=== PATIENT | female | born 1990 | race Caucasian/White ===

== ENCOUNTER 2016-08-12 11:57 | Emergency (ER) | payer BC ==
[2016-08-12] MEDS ORDERED: Ondansetron INJ* 2 MG/ML VIAL IV ONE ×2 (12:43→15:51)
[2016-08-12] MEDS ORDERED: NS 0.9% 1000 ML* 1,000 ML IV ONE (12:43)
[2016-08-12] MEDS ORDERED: HYDROcodone/ACETAMIN 5-325 MG* 1 TAB PO ONE ×2 (13:06→15:11)
--- NOTE | 2016-08-12 13:15 | ED ---
Abdominal Pain/Female - HPI Summary HPI Summary: 26 female presents with complaints of lower left abdominal/pelvic pain that began last night around 8pm and has progressively getting worse. Patient states the pain feels sharp and is worth with movement. Feels better to have her knees bent and in position. Denies radiation or urinary symptoms. Patient normally has urinary frequency. Denies blood in urine. Admits to vaginal bleeding that comes and goes for the past 6 days. Patient tried taking Ibuprofen 400mg this morning without any relief. She also complains of a migraine and feeling hot. Patient says the pain feels similar to when she had an ovarian cyst of the left ovary approximately 2 years ago. Patient also experienced bleeding with the past ovarian cyst. She has been worked up by her OBGYN for endometriosis and uterine issues. Admits to nausea however has not vomited. LBM this morning, normal without blood. Denies constipation and diarrhea. Denies any difficulty breathing and chest pain. PMHx of migraines. She is sexually active with her and take OCP. Does not think she is took OTC test to be sure yesterday that was negative. Denies vaginal discharge other than blood. Has been drinking fluids. - History of Current Complaint Chief Complaint: EDAbdPain Stated Complaint: LOWER LEFT ABD PAIN Time Seen by Provider: 08/12/16 12:07 Hx Obtained From: Patient Hx Last Menstrual Period: 07/26/16 Onset/Duration: Sudden Onset, Lasting Hours Timing: Constant Severity Initially: Moderate Severity Currently: Moderate Pain Intensity: 8 Pain Scale Used: 0-10 Numeric Location: Discrete At: LLQ, Suprapubic Radiates: No Character: Sharp, Cramping Aggravating Factor(s): Movement Alleviating Factor(s): Position - some relief Associated Signs and Symptoms: Positive: Vaginal Bleeding, Nausea - Risk Factors Ovarian Torsion Risk Factor: Ovarian Cysts/Tumors Allergies/Adverse Reactions: Allergies Allergy/AdvReac Type Severity Reaction Status Date / Time Azithromycin [From Zithromax] Allergy Rash Verified 03/31/16 15:10 Cefuroxime Allergy Anaphylatic Verified 05/07/16 15:34 Shock Guaifenesin [From Entex ER] Allergy Unknown Verified 05/07/16 15:35 Reaction Details Methylparaben [From Entex ER] Allergy Unknown Verified 05/07/16 15:35 Reaction Details Montelukast Allergy Hallucinati Verified 03/31/16 15:10 ons Penicillins [PCN] Allergy Hives Verified 03/31/16 15:10 Phenylephrine [From Entex ER] Allergy Unknown Verified 05/07/16 15:35 Reaction Details Propylparaben [From Entex ER] Allergy Unknown Verified 05/07/16 15:35 Reaction Details Shellfish Allergy Allergy Itchy and Verified 03/31/16 15:10 Erythemic Ears Sulfa Drugs Allergy Hives/Diff. Verified 03/31/16 15:10 Breathing/I tching Sumatriptan [From Imitrex] Allergy Hives Verified 03/31/16 15:10 Codeine AdvReac See Comment Verified 03/31/16 15:10 Ketorolac Tromethamine AdvReac Vomiting Verified 03/31/16 15:10 [From Toradol] grape flavoring Allergy Facial Uncoded 03/31/16 15:10 Swelling, Difficulty Breathing, and Wheezing PMH/Surg Hx/FS Hx/Imm Hx Endocrine/Hematology History: Denies: Hx Anticoagulant Therapy, Hx Diabetes, Hx Thyroid Disease Cardiovascular History: Reports: Other Cardiovascular Problems/Disorders - LUPUS Denies: Hx Congestive Heart Failure, Hx Deep Vein Thrombosis, Hx Hypertension , Hx Myocardial Infarction, Hx Pacemaker/ICD Respiratory History: Denies: Hx Asthma, Hx Chronic Obstructive Pulmonary Disease (COPD), Hx Lung Cancer, Hx Pneumonia, Hx Pulmonary Embolism GI History: Denies: Hx Gall Bladder Disease, Hx Gastrointestinal Bleed, Hx Ulcer, Hx Urosepsis History: Denies: Hx Kidney Stones, Hx Renal Disease Neurological History: Reports: Hx Headaches, Hx Migraine - She uses Imetrix- like pill for migraines. Denies: Hx Dementia, Hx Seizures, Hx Transient Ischemic Attacks (TIA) Psychiatric History: Reports: Hx Anxiety Denies: Hx Depression, Hx Schizophrenia, Hx Bipolar Disorder, Hx Substance Abuse - Surgical History Surgery Procedure, Year, and Place: WISDOM TEETH EXTRACTION. EAR TUBES Infectious Disease History: No Infectious Disease History: Denies: Hx Clostridium Difficile, Hx Hepatitis, Hx Human Immunodeficiency Virus (HIV), Hx Shingles, Hx Tuberculosis, Traveled Outside the [place] in Last 30 Days - Family History Known Family History: Positive: Cardiac Disease, Hypertension - Social History Alcohol Use: Occasionally Substance Use Type: Reports: None Smoking Status (MU): Never Smoked Tobacco Review of Systems Positive: Fever Eyes: Negative ENT: Negative Cardiovascular: Negative Respiratory: Negative Positive: Abdominal Pain, Nausea Positive: discharge - vaginal bleeding Musculoskeletal: Negative Skin: Negative Positive: Headache Psychological: Normal All Other Systems Reviewed And Are Negative: Yes Physical Exam Triage Information Reviewed: Yes Vital Signs On Initial Exam: Initial Vitals Temp Pulse Resp BP Pulse Ox 99.1 F 131 20 128/71 100 08/12/16 11:58 08/12/16 11:58 08/12/16 11:58 08/12/16 11:58 08/12/16 11:58 temporal and rectal temp re-taken and found to be 101F. tachycardia noted, fluids given. BP nomal, not hypotensive. Vital Signs Reviewed: Yes Appearance: Positive: Well-Appearing, Well-Nourished, Pain Distress - mild Skin: Positive: Warm - hot to touch, Skin Color Reflects Adequate Perfusion, Dry Head/Face: Positive: Normal Head/Face Inspection Eyes: Positive: Normal, EOMI, JOHANNA, Conjunctiva Clear, Other: - photophobia ENT: Positive: Normal ENT inspection, Hearing grossly normal, Pharynx normal, TMs normal Neck: Positive: Supple, Nontender, No Lymphadenopathy Respiratory/Lung Sounds: Positive: Clear to Auscultation, Breath Sounds Present Cardiovascular: Positive: Normal, RRR, Pulses are Symmetrical in both Upper and Lower Extremities. Negative: Leg Edema Left, Leg Edema Right Abdomen Description: Positive: No Organomegaly, Soft, Other: - tender on palpation of LLQ and supra pubic. minimal tenderness on RLQ (-) Rovsing's, Psoas and Obturators. Negative: CVA Tenderness (R), CVA Tenderness (L), Distended, Guarding, McBurney's Point Tenderness, Peritoneal Signs, Splenomegaly Bowel Sounds: Positive: Present Pelvic Exam: Positive: external exam normal, speculum exam normal - per patient' s norm- Due to previous complication of and giving to large baby patient has scar tissue and cervix is placed on the left lateral wall. appear normal otherwise., bimanual exam normal - tender, no cerv. motion tender , no masses, discharge - appears to be normal discharge, culture taken, tender adnexa. Negative: active bleeding, blood, cervicitis, lesions, mass, tender w/ cervical motion, tender uterus Musculoskeletal: Positive: Normal, Strength/ROM Intact Neurological: Positive: Normal, Sensory/Motor Intact, Alert, Oriented to Person Place, Time, CN Intact II-III, Reflexes Intact, NV Bundle Intact Distally, Normal Gait, Finger to Nose, Speech Normal, Other - normal neuro exam Psychiatric: Positive: Normal, Affect/Mood Appropriate AVPU Assessment: Alert - Isidro Coma Scale Coma Scale Total: 15 Diagnostics - Vital Signs Vital Signs Temp Pulse Resp BP Pulse Ox 08/12/16 12:30 131 125/82 100 08/12/16 12:29 130 99 08/12/16 12:23 101.3 F 130 08/12/16 11:58 99.1 F 131 20 128/71 100 - Laboratory Result Diagrams: 08/12/16 13:15 08/12/16 13:15 Lab Statement: Any lab studies that have been ordered have been reviewed, and results considered in the medical decision making process. - Ultrasound No standard instances Ultrasound Interpretation: Positive (See Comments) - Hypoechoic 5 mm lesion in the right ovary likely represents a hemorrhagic cyst. Follow-up exam is suggested. No evidence of torsion is noted. Ultrasound Interpretation Completed By: Radiologist Re-Evaluation - Re-Evaluation First Eval Re-Evaluation Time: 13:00 Change: Improved - patient is feeling better after pain medication and zofran Second Eval Re-Evaluation Time: 15:20 Change: Worse - migraine and abdominal pain has seemed to increase along with nausea. will give another dose of pain medication and zofran Third Eval Re-Evaluation Time: 16:05 Change: Improved - nausea and abdominal pain improved. still experiencing migraine, just took imitrex approximately 30 minutes ago. tachycardia and fever subsided Abdominal Pain Fem Course/Dx - Course Course Of Treatment: Full work up, labs, UA, HCG preg, cultures and lactic ordered. Pelvic exam and U/S transvaginal obtained. Due to patient allergies, hydrocodone given for pain. Zofran and fluids. Imitrex for migraine, which she is presribed at home for migraines. Pelvic US positive for hemorrhagic cyst on left ovary. Pelvic exam normal. Tachycardia and fever subsided, vitals stable. Patient will be d/c with pain and nausea management. aware of worsening signs and symptoms. - Diagnoses Differential Diagnosis: Positive: Constipation, Ovarian Cyst, , Urinary Tract Infection Provider Diagnoses: Hemorrhagic ovarian cyst Discharge - Discharge Plan Condition: Stable Disposition: HOME Prescriptions: Naproxen TAB* [Naprosyn TAB*] 500 mg PO Q8H PRN #20 tab PRN Reason: Pain Ondansetron ODT TAB* [Zofran 4 MG Odt TAB*] 4 mg PO Q6H PRN #10 tab.odt PRN Reason: Nausea Patient Education Materials: Ovarian Cyst (ED) Referrals: Paxton Mansfield MD [Primary Care Provider] - Additional Instructions: Take pain medication as needed to help with your pain, take with food. Take the Zofran to help with nausea as needed. Heating pads may also help with discomfort. Drink lots of water and get plenty of rest. Follow up and make an appointment with your primary care provider or OBGYN after your next cycle to ensure proper treatment. If pain becomes un-bearable like we talked about and increases along with new symptoms of feeling faint, high fevers over 104F and vomiting please seek medical attention promptly.
[2016-08-12 13:29] LABS: Hematocrit 44 % (35-47); Hemoglobin 15.1 g/dl (12.0-16.0); Mean Corpuscular HGB Conc 35 g/dl (31-36); Mean Corpuscular Hemoglobin 30 pg (27-31); Mean Corpuscular Volume 85 fL (80-97); Mean Platelet Volume 9 um3 (7.4-10.4); Red Cell Distribution Width 13 % (10.5-15); White Blood Count 4.4 10^3/ul (3.5-10.8)
[2016-08-12 13:32] LABS: Urine Bilirubin Negative (Negative); Urine Glucose Negative (Negative); Urine Nitrite Negative (Negative)
[2016-08-12 13:47] LABS: ALT 15 U/L (7-52); AST 21 U/L (13-39); Albumin 4.5 g/dL (3.2-5.2); Alkaline Phosphatase 59 U/L (34-104); Anion Gap 8 mmol/L (2-11); BUN/Creatinine Ratio 11.6 (8-20); Blood Urea Nitrogen 8 mg/dL (6-24); CO2 Carbon Dioxide 26 mmol/L (22-32); Calcium 9.7 mg/dL (8.6-10.3); Chloride 98 mmol/L (101-111); EGFR African American 130.3 (>60); EGFR Non-African American 101.3 (>60); Globulin 3.5 g/dL (2-4); Glucose 104 mg/dL (70-100); Lipase 15 U/L (11.0-82.0); Sodium 132 mmol/L (133-145)
--- NOTE | 2016-08-12 13:59 | RAD ---
Indication: Pelvic pain bleeding. Real-time sonography of the pelvis was performed. The study was performed utilizing endovaginal technique. The uterus measures 8.9 x 5.4 x 6.4 cm. Endometrial echo measures 6.6 mm. The right ovary measures 22 x 13 x 24 mm. Left ovary measures 28 x 10 x 20 mm. Doppler interrogation demonstrates normal flow in both ovaries. Hyperechoic area in the right ovary measures 5 x 3 x 5 mm may represent hemorrhagic follicle. This was not not identified previously. Follow-up exam is suggested. IMPRESSION: Hypoechoic 5 mm lesion in the right ovary likely represents a hemorrhagic cyst. Follow-up exam is suggested. No evidence of torsion is noted.
[2016-08-12] MEDS ORDERED: SUMAtriptan TAB* 50 MG PO ONE (14:28)
[2016-08-12] MEDS ORDERED: Ondansetron INJ* 2 MG/ML VIAL ONE (15:50)
[2016-08-12 17:32] VITALS: BP 115/71
== END 2016-08-12 17:33 | disposition home or self-care (01) ==
LOC: ED 11:57
DX: N83.209 Unspecified ovarian cyst, unspecified side (principal); N93.9 Abnormal uterine and vaginal bleeding, unspecified; R10.32 Left lower quadrant pain; R11.0 Nausea; R50.9 Fever, unspecified; R51 Headache
CPT/HCPCS: 36415; 76830; 80053; 81003; 83605; 83690; 84702; 85025; 86140; 87040; 87480; 87510; 87660; 99283; A9270-GY; J2405

== ENCOUNTER 2016-08-15 07:09 | Emergency (ER) | payer BC ==
[2016-08-15 07:23] VITALS: BP 108/58
--- NOTE | 2016-08-15 07:59 | UC ---
Complaint Female HPI - HPI Summary HPI Summary: The patient comes in today for: 1. Genital area soreness/"cut": Onset: Yesterday. Palliative/provocative: Salt water (Epsom salt Sitz bath), and touching makes it worse. Quality: Soreness, burning, pulsing Region: Severity: 8/10 Time: Constant. Associated symptoms: Fever: None Vaginal discharge/bleeding: None Previous disease: None. Previous treatment: Zinc ointment made it worse. She denies any problems with photophobia. But, she states that she has some oral lesions from time to time. She is presently seeing a structures technician for her Lupus. * - History Of Current Complaint Chief Complaint: UCGU Stated Complaint: PERSONAL Time Seen by Provider: 08/15/16 07:53 Hx Obtained From: Patient Hx Last Menstrual Period: 07/26/16 ?: No - Allergies/Home Medications Allergies/Adverse Reactions: Allergies Allergy/AdvReac Type Severity Reaction Status Date / Time Azithromycin [From Zithromax] Allergy Rash Verified 08/15/16 07:16 Cefuroxime Allergy Anaphylatic Verified 08/15/16 07:16 Shock Guaifenesin [From Entex ER] Allergy Unknown Verified 08/15/16 07:16 Reaction Details Methylparaben [From Entex ER] Allergy Unknown Verified 08/15/16 07:16 Reaction Details Montelukast Allergy Hallucinati Verified 08/15/16 07:16 ons Penicillins [PCN] Allergy Hives Verified 08/15/16 07:16 Phenylephrine [From Entex ER] Allergy Unknown Verified 08/15/16 07:16 Reaction Details Propylparaben [From Entex ER] Allergy Unknown Verified 08/15/16 07:16 Reaction Details Shellfish Allergy Allergy Itchy and Verified 08/15/16 07:16 Erythemic Ears Sulfa Drugs Allergy Hives/Diff. Verified 08/15/16 07:16 Breathing/I tching Sumatriptan [From Imitrex] Allergy Hives Verified 08/15/16 07:16 Codeine AdvReac See Comment Verified 08/15/16 07:16 Ketorolac Tromethamine AdvReac Vomiting Verified 08/15/16 07:16 [From Toradol] grape flavoring Allergy Facial Uncoded 08/15/16 07:16 Swelling, Difficulty Breathing, and Wheezing Home Medications: Home Medications Hydrochlorothiazide TAB* [Hydrodiuril TAB*] 12.5 mg PO DAILY 08/15/16 [History Confirmed 08/15/16] SUMAtriptan TAB* [Imitrex TAB*] 50 mg PO SEE INSTRUCTIONS 08/15/16 [History Confirmed 08/15/16] PMH/Surg Hx/FS Hx/Imm Hx Previously Healthy: No - Lupus (Hives, fevers), peripheal edema Endocrine History Of: Denies: Diabetes, Thyroid Disease, Hyperthyroidism, Hypothyroidism, Dyslipidemia Cardiovascular History Of: Denies: Cardiac Disorders, Hypertension, Pacemaker/ICD, Myocardial Infarction , Congestive Heart Failure, Atrial Fibrillation, Deep Vein Thrombosis, Bleeding Disorders Respiratory History Of: Denies: COPD, Asthma, Bronchitis, Pneumonia, Pulmonary Embolism GI/ History Of: Denies: Gastroesophageal Reflux, Ulcer, Gastrointestinal Bleed, Gall Bladder Disease, Kidney Stones, Diverticulitis, Renal Disease, Urosepsis Neurological History Of: Reports: Migraine - She uses Imetrix-like pill for migraines. Denies: TIA, CVA, Dementia, Seizures Psychological History Of: Reports: Anxiety Denies: Depression, Bipolar Disorder, Schizophrenia, Post Traumatic Stress Disorder Cancer History Of: Denies: Lung Cancer, Colorectal Cancer, Breast Cancer, Prostate Cancer, Cervical Cancer Other History Of: Negative For: HIV, Hepatitis B, Hepatitis C, Anticoagulant Therapy - Surgical History Surgical History: Yes Surgery Procedure, Year, and Place: WISDOM TEETH EXTRACTION. EAR TUBES - Family History Known Family History: Positive: Cardiac Disease, Hypertension - Social History Occupation: Employed Full-time Alcohol Use: Occasionally Substance Use Type: None Smoking Status (MU): Never Smoked Tobacco - Immunization History Most Recent Influenza Vaccination: 03/10/16 Most Recent Tetanus Shot: 2 yrs ago Review of Systems Constitutional: Negative Skin: Rash Eyes: Negative ENT: Negative Respiratory: Negative Cardiovascular: Negative Gastrointestinal: Negative Genitourinary: Negative All Other Systems Reviewed And Are Negative: Yes Physical Exam Triage Information Reviewed: Yes Appearance: Well-Appearing, No Pain Distress, Well-Nourished Vital Signs: Initial Vital Signs Temp 98.4 F 08/15/16 07:18 Pulse 86 08/15/16 07:18 Resp 18 08/15/16 07:18 BP 108/58 08/15/16 07:18 Pulse Ox 100 08/15/16 07:18 Vital Signs Reviewed: Yes Eyes: Positive: Conjunctiva Clear, Other: - No photophobia. No erythema of the conjunctiva.. Negative: Discharge ENT: Positive: Hearing grossly normal, Other: - Geographic tonque is present-- but no aphthous ulcers.. Negative: Pharyngeal erythema, Nasal congestion, Nasal drainage, TM bulging, TM dull, TM red Dental: Negative: Gross Decay/Caries @, Dental Fracture @ Neck: Positive: Supple, Nontender, No Lymphadenopathy. Negative: Nuchal Rigidity Respiratory: Positive: Chest non-tender, Lungs clear, No respiratory distress, No accessory muscle use. Negative: Rhonchi, Wheezing Cardiovascular: Positive: RRR, No Murmur Abdomen Description: Positive: No Organomegaly, Soft. Negative: Nontender - She has some tenderness in the lower left quadrant, but she was seen in ER for this: ovarian cyst-improving., Distended, Guarding Musculoskeletal: Positive: Strength Intact, ROM Intact, No Edema Neurological: Positive: Alert, Muscle Tone Normal Psychological: Positive: Age Appropriate Behavior, Consolable Skin: Positive: breakdown - She has a painful ulcer of the left labia. There is no erythema, no discharge, no inquinal lymph nodes, It is about 3 mm x 5 mm. Diagnostics - Laboratory Diagnostic Studies Completed/Ordered: Syphilis IGG with reflex RPR ordered as well as viral culture. Complaint Female Dx - Course Course Of Treatment: Patient was told that I did not know what was causing the single genital ulcer. She was told that it may be bacterial (Chancroid--though I did not mention this word), and viral (HSV though I did not mention this word either). She was told that it may be Bechet's and to see her structures technician who is treating her Lupus. I doubt that it is lymphogranuloma venereum, or granuloma inquinale due to these conditions being rare in [place] and painless. She was told to cover the ulcer with petroleum jelly and take Cipro (will cover Chancroid) and to follow up with her PCP and structures technician. - Differential Dx/Diagnosis Provider Diagnoses: Painful left genital ulcer. Discharge - Discharge Plan Condition: Stable Disposition: HOME Referrals: Paxton Mansfield MD [Primary Care Provider] - 1 Week (Please see your primary care provider in about a week to see how well you are doing. If you get worse, please be seen sooner.) Additional Instructions: Please contact your structures technician for a follow up evaluation and consideration for Bechet's. If you develop any eye symptoms such as light sensitivity, please be seen by an ophthalmolgist as soon as you can for possible uveitis.
[2016-08-15 13:18] LABS: Syphilis Index < 0.1 Index
[2016-08-18 01:04] LABS: HS/VZ Source LEFT LABIAL; Varicella Zoster Result Negative (Negative); Varicella Zoster Source LEFT LABIAL
== END 2016-08-15 08:55 | disposition home or self-care (01) ==
LOC: UCCORT 07:09
DX: N76.6 Ulceration of vulva (principal); Z11.3 Encounter for screening for infections with a predominantly sexual mode of transmission; Z88.1 Allergy status to other antibiotic agents; Z88.5 Allergy status to narcotic agent; Z88.0 Allergy status to penicillin; Z88.2 Allergy status to sulfonamides; Z88.8 Allergy status to other drugs, medicaments and biological substances
CPT/HCPCS: 36415; 86592; 87529; 87798; 99212; G0463

== ENCOUNTER 2016-08-15 20:58 | Emergency (ER) | payer BC ==
[2016-08-15 21:30] VITALS: BP 112/71
--- NOTE | 2016-08-15 21:42 | UC ---
UC General HPI - HPI Summary HPI Summary: complaint of ulceration on her labia that she noticed yesterday seen at urgent care this morning and put on cipro for infection since the morning it feels painful and she cannot find a position of comfort feels like a open sore pain radiates into her left inguinal lymph node currently has ovarian cyst took 1/2 pill of hydrocodone with some relief this morning but afraid to take medication denies dysuria, vaginal discharge,fever and chills - History of Current Complaint Chief Complaint: UCAbdominalPain Stated Complaint: PERSONAL (RE-CK) Time Seen by Provider: 08/15/16 21:29 Hx Obtained From: Patient - Allergy/Home Medications Allergies/Adverse Reactions: Allergies Allergy/AdvReac Type Severity Reaction Status Date / Time Azithromycin [From Zithromax] Allergy Rash Verified 08/15/16 21:27 Cefuroxime Allergy Anaphylatic Verified 08/15/16 21:27 Shock Guaifenesin [From Entex ER] Allergy Unknown Verified 08/15/16 21:27 Reaction Details Methylparaben [From Entex ER] Allergy Unknown Verified 08/15/16 21:27 Reaction Details Montelukast Allergy Hallucinati Verified 08/15/16 21:27 ons Penicillins [PCN] Allergy Hives Verified 08/15/16 21:27 Phenylephrine [From Entex ER] Allergy Unknown Verified 08/15/16 21:27 Reaction Details Propylparaben [From Entex ER] Allergy Unknown Verified 08/15/16 21:27 Reaction Details Shellfish Allergy Allergy Itchy and Verified 08/15/16 21:27 Erythemic Ears Sulfa Drugs Allergy Hives/Diff. Verified 08/15/16 21:27 Breathing/I tching Sumatriptan [From Imitrex] Allergy Hives Verified 08/15/16 21:27 Codeine AdvReac See Comment Verified 08/15/16 21:27 Ketorolac Tromethamine AdvReac Vomiting Verified 08/15/16 21:27 [From Toradol] grape flavoring Allergy Facial Uncoded 08/15/16 21:27 Swelling, Difficulty Breathing, and Wheezing Home Medications: Home Medications Hydrocodone-Acetaminophen [Hydrocodone/Acetaminophen 10-325 mg] 0.5 tab PO QID PRN MDD 4 08/15/16 [History Confirmed 08/15/16] Orthocyclen O C 1 tab PO QPM 08/15/16 [History] PMH/Surg Hx/FS Hx/Imm Hx Previously Healthy: Yes Endocrine History Of: Denies: Diabetes, Thyroid Disease, Hyperthyroidism, Hypothyroidism, Dyslipidemia Cardiovascular History Of: Denies: Cardiac Disorders, Hypertension, Pacemaker/ICD, Myocardial Infarction , Congestive Heart Failure, Atrial Fibrillation, Deep Vein Thrombosis, Bleeding Disorders Respiratory History Of: Denies: COPD, Asthma, Bronchitis, Pneumonia, Pulmonary Embolism GI/ History Of: Denies: Gastroesophageal Reflux, Ulcer, Gastrointestinal Bleed, Gall Bladder Disease, Kidney Stones, Diverticulitis, Renal Disease, Urosepsis Neurological History Of: Reports: Migraine - She uses Imetrix-like pill for migraines. Denies: TIA, CVA, Dementia, Seizures Psychological History Of: Reports: Anxiety Denies: Depression, Bipolar Disorder, Schizophrenia, Post Traumatic Stress Disorder Cancer History Of: Denies: Lung Cancer, Colorectal Cancer, Breast Cancer, Prostate Cancer, Cervical Cancer Other History Of: Negative For: HIV, Hepatitis B, Hepatitis C, Anticoagulant Therapy - Surgical History Surgical History: Yes Surgery Procedure, Year, and Place: WISDOM TEETH EXTRACTION. EAR TUBES - Family History Known Family History: Positive: Cardiac Disease, Hypertension - Social History Alcohol Use: Occasionally Substance Use Type: None Smoking Status (MU): Never Smoked Tobacco - Immunization History Most Recent Influenza Vaccination: 03/10/16 Most Recent Tetanus Shot: 2 yrs ago Review of Systems Constitutional: Negative Skin: Other Eyes: Negative ENT: Negative Respiratory: Negative Cardiovascular: Negative Gastrointestinal: Negative Genitourinary: Negative Motor: Negative Neurovascular: Negative Musculoskeletal: Negative Neurological: Negative Psychological: Negative All Other Systems Reviewed And Are Negative: Yes Physical Exam Triage Information Reviewed: Yes Appearance: Well-Appearing, Well-Nourished Vital Signs: Initial Vital Signs Temp 98.3 F 08/15/16 21:17 Pulse 100 08/15/16 21:17 Resp 16 08/15/16 21:17 BP 112/71 08/15/16 21:17 Vital Signs Reviewed: Yes Eyes: Positive: Conjunctiva Clear ENT: Positive: Pharynx normal, TMs normal Neck: Positive: No Lymphadenopathy Respiratory: Positive: Lungs clear, Normal breath sounds, No respiratory distress Cardiovascular: Positive: RRR, No Murmur, Pulses Normal Abdomen Description: Positive: Nontender, No Organomegaly, Soft. Negative: CVA Tenderness (R), CVA Tenderness (L) Bowel Sounds: Positive: Present Musculoskeletal: Positive: No Edema Neurological: Positive: Alert Psychological Exam: Normal Skin: Positive: Other - left side of labia - ulceration 2,mmx2mm pale base no discharge Course/Dx - Course Course Of Treatment: exam completed. explained testing completed at earlier visit today. will start valtrex and give her lidocaine for better pain control. encouraged to take hydrocodone as prescribed. followup with [facility] - Differential Dx - Multi-Symptom Provider Diagnoses: genital ulceration Discharge - Discharge Plan Condition: Stable Disposition: HOME Prescriptions: ValACYclovir (*) [Valtrex 1 GM(*)] 1 gm PO BID #14 tab Referrals: Paxton Mansfield MD [Primary Care Provider] - Additional Instructions: start taking your pain medication as prescribed tomorrow start antiviral medication as prescribed use lidocaine on the ulcer as needed for pain control please call your [facility] tomorrow for followup treatment
[2016-08-15] MEDS ORDERED: Lidocaine 2% VISCOUS* 15 ML UDC PO ONE ×2 (21:56)
[2016-08-15] MEDS ORDERED: Lidocaine 2% VISCOUS* 15 ML UDC ONE (22:14)
== END 2016-08-15 22:23 | disposition home or self-care (01) ==
LOC: UCCORT 20:58
DX: N76.6 Ulceration of vulva (principal); Z88.1 Allergy status to other antibiotic agents; Z88.5 Allergy status to narcotic agent; Z88.0 Allergy status to penicillin; Z88.2 Allergy status to sulfonamides
CPT/HCPCS: 99212; G0463

== ENCOUNTER 2016-08-18 14:09 | Emergency (ER) | payer BC ==
--- NOTE | 2016-08-18 14:21 | UC ---
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 All her questions were answered after about 30 minutes of phone conversation. She calls back a second time and states that the left lesion I had seen before was now, "split open from the clitoris to the rectum" and there is a "yellow discharge." She was encouraged to come back in for re-evaluation. Provider staff were told of her coming in.
[2016-08-18 14:32] VITALS: BP 105/69
--- NOTE | 2016-08-18 14:50 | UC ---
Complaint Female HPI - HPI Summary HPI Summary: 26 yo female with a hx of LUPUS presents with worsening left labial lesions/a left inguinal lymphnode/and continued pelvic pain Was seen in ED about a week ago Had a fever at that time Ultrasound showed left ovarian cyst was diagnosed with HSV the past day or two has had a profuse yellow vaginal d/c - History Of Current Complaint Chief Complaint: UCGU Stated Complaint: PERSONAL Time Seen by Provider: 08/18/16 14:49 Hx Obtained From: Patient Hx Last Menstrual Period: 07/26/16 Onset/Duration: Gradual Onset, Lasting Weeks - 1 Timing: Constant Severity Initially: Severe Severity Currently: Moderate Pain Intensity: 4 Pain Scale Used: 0-10 Numeric Character: Dull, Burning, Cramping Aggravating Factor(s): Movement Alleviating Factor(s): Meds Associated Signs And Symptoms: Positive: Fever - at onset/feels a little warm now, Back Pain - low back pain, Vaginal Discharge, Nausea, Genital Blisters. Negative: Vomiting(# Of Episodes =), Retained Foregin Body (Specify) - Allergies/Home Medications Allergies/Adverse Reactions: Allergies Allergy/AdvReac Type Severity Reaction Status Date / Time Azithromycin [From Zithromax] Allergy Rash Verified 08/18/16 14:32 Cefuroxime Allergy Anaphylatic Verified 08/18/16 14:32 Shock Guaifenesin [From Entex ER] Allergy Unknown Verified 08/18/16 14:32 Reaction Details Methylparaben [From Entex ER] Allergy Unknown Verified 08/18/16 14:32 Reaction Details Montelukast Allergy Hallucinati Verified 08/18/16 14:32 ons Penicillins [PCN] Allergy Hives Verified 08/18/16 14:32 Phenylephrine [From Entex ER] Allergy Unknown Verified 08/18/16 14:32 Reaction Details Propylparaben [From Entex ER] Allergy Unknown Verified 08/18/16 14:32 Reaction Details Shellfish Allergy Allergy Itchy and Verified 08/18/16 14:32 Erythemic Ears Sulfa Drugs Allergy Hives/Diff. Verified 08/18/16 14:32 Breathing/I tching Sumatriptan [From Imitrex] Allergy Hives Verified 08/18/16 14:32 Codeine AdvReac See Comment Verified 08/18/16 14:32 Ketorolac Tromethamine AdvReac Vomiting Verified 08/18/16 14:32 [From Toradol] grape flavoring Allergy Facial Uncoded 08/18/16 14:32 Swelling, Difficulty Breathing, and Wheezing PMH/Surg Hx/FS Hx/Imm Hx - Additional Past Medical History Additional PMH: LUPUS Endocrine History Of: Denies: Diabetes, Thyroid Disease, Hyperthyroidism, Hypothyroidism, Dyslipidemia Cardiovascular History Of: Denies: Cardiac Disorders, Hypertension, Pacemaker/ICD, Myocardial Infarction , Congestive Heart Failure, Atrial Fibrillation, Deep Vein Thrombosis, Bleeding Disorders Respiratory History Of: Denies: COPD, Asthma, Bronchitis, Pneumonia, Pulmonary Embolism GI/ History Of: Denies: Gastroesophageal Reflux, Ulcer, Gastrointestinal Bleed, Gall Bladder Disease, Kidney Stones, Diverticulitis, Renal Disease, Urosepsis Neurological History Of: Reports: Migraine - She uses Imetrix-like pill for migraines. Denies: TIA, CVA, Dementia, Seizures Psychological History Of: Reports: Anxiety Denies: Depression, Bipolar Disorder, Schizophrenia, Post Traumatic Stress Disorder Cancer History Of: Denies: Lung Cancer, Colorectal Cancer, Breast Cancer, Prostate Cancer, Cervical Cancer Other History Of: Negative For: HIV, Hepatitis B, Hepatitis C, Anticoagulant Therapy - Surgical History Surgical History: Yes Surgery Procedure, Year, and Place: WISDOM TEETH EXTRACTION. EAR TUBES - Family History Known Family History: Positive: Cardiac Disease, Hypertension - Social History Alcohol Use: Occasionally Substance Use Type: None Smoking Status (MU): Never Smoked Tobacco - Immunization History Most Recent Influenza Vaccination: 03/10/16 Most Recent Tetanus Shot: 2 yrs ago Review of Systems Constitutional: Fever - ana Skin: Negative Eyes: Negative ENT: Negative Respiratory: Negative Cardiovascular: Negative Gastrointestinal: Negative Genitourinary: Negative Motor: Negative Neurovascular: Negative Musculoskeletal: Negative Neurological: Negative Psychological: Negative All Other Systems Reviewed And Are Negative: Yes Physical Exam Triage Information Reviewed: Yes Appearance: Well-Appearing, No Pain Distress, Well-Nourished Vital Signs: Initial Vital Signs Temp 98.2 F 08/18/16 14:25 Pulse 96 08/18/16 14:25 Resp 18 08/18/16 14:25 BP 105/69 08/18/16 14:25 Pulse Ox 98 08/18/16 14:25 Vital Signs Reviewed: Yes Eyes: Positive: Conjunctiva Clear ENT: Positive: Hearing grossly normal. Negative: Nasal congestion, Nasal drainage, Trismus, Muffled/hoarse voice Neck: Positive: Supple, Nontender, Enlarged Nodes @ - left post cervical node Respiratory: Positive: Lungs clear, Normal breath sounds, No respiratory distress, No accessory muscle use Cardiovascular: Positive: RRR, No Murmur Abdomen Description: Positive: Nontender, No Organomegaly. Negative: CVA Tenderness (R), CVA Tenderness (L), Distended, Guarding, Hernia @, Hepatomegaly , Pulsatile Mass, Splenomegaly Bowel Sounds: Positive: Present Musculoskeletal: Positive: ROM Intact, No Edema Neurological: Positive: Alert Psychological Exam: Normal Skin Exam: Other - see image UC Physical Exam Vital Signs On Initial Exam: Initial Vitals Temp Pulse Resp BP Pulse Ox 98.2 F 96 18 105/69 98 08/18/16 14:25 08/18/16 14:25 08/18/16 14:25 08/18/16 14:25 08/18/16 14:25 - Genitalia Exam Female Genitourinary: Cervix Discharge - cervix markedly inflamed and covered with profuse yellowish d/c, (+) CMT . see image, Other - bilateral adenexal tenderness Complaint Female Dx - Course Course Of Treatment: pt has had an anaphylaxic reaction to cephalosporins. I discussed my concerns re PID. Pt informed of possible complications of PID and need to get rechecked in a timely fashion especially if not improving in a few days. - Differential Dx/Diagnosis Provider Diagnoses: PID. genital herpes Discharge - Discharge Plan Condition: Stable Disposition: HOME Prescriptions: DOXYcycline CAP(*) [DOXYcycline 100MG CAP(*)] 100 mg PO BID #28 cap Levofloxacin TAB* [Levaquin TAB*] 500 mg PO DAILY #28 tab Metronidazole [Flagyl 500 MG TAB] 500 mg PO BID #14 tab Patient Education Materials: Pelvic Inflammatory Disease (ED), Cervicitis (ED) , Genital Herpes Simplex (ED) Forms: *Work Release Referrals: Paxton Mansfield MD [Primary Care Provider] - As Soon As Possible Additional Instructions: I suggest you take the valtrex Your cervix was very inflamed and you had a thick yellow discharge covering it You have felt feverish and you had right and left sided pelvic tenderness I suspect you have PID tests are pending please call you forensic dna analyst and see if they can see you in a timely fashion to er for high fever worsening pain vomiting failure to improve after a few days Images Perineum Female: 1 - draining abscess 2 - multiple ulcerations 3 - tender/swollen LN
[2016-08-18 19:11] LABS: Hematocrit 38 % (35-47); Mean Corpuscular HGB Conc 34 g/dl (31-36); Mean Corpuscular Hemoglobin 29 pg (27-31); Mean Corpuscular Volume 85 fL (80-97); Mean Platelet Volume 9 um3 (7.4-10.4); Red Cell Distribution Width 13 % (10.5-15); White Blood Count 6.2 10^3/ul (3.5-10.8)
[2016-08-18 19:21] LABS: Erythrocyte Sed Rate 33 mm/Hr (0-14)
== END 2016-08-18 16:14 | disposition home or self-care (01) ==
LOC: UCCORT 14:09
DX: N73.9 Female pelvic inflammatory disease, unspecified (principal); A60.00 Herpesviral infection of urogenital system, unspecified; M32.9 Systemic lupus erythematosus, unspecified; Z88.1 Allergy status to other antibiotic agents; Z88.5 Allergy status to narcotic agent; Z88.0 Allergy status to penicillin; Z88.2 Allergy status to sulfonamides; Z88.8 Allergy status to other drugs, medicaments and biological substances
CPT/HCPCS: 36415; 85025; 85652; 87070; 87480; 87491; 87510; 87591; 87661; 99212; G0463

== ENCOUNTER 2016-09-08 16:02 | Emergency (ER) | payer BC ==
[2016-09-08] MEDS ORDERED: Ondansetron TAB* 4 MG PO ONE (16:35)
[2016-09-08] MEDS ORDERED: NS 0.9% 1000 ML* 1,000 ML IV ONE (16:35)
[2016-09-08] MEDS ORDERED: Al Hydrox/Mg Hydrox/Simet LIQ* 30 ML UDC PO ONE (16:37)
[2016-09-08] MEDS ORDERED: Lidocaine 2% VISCOUS* 15 ML UDC PO ONE (16:37)
[2016-09-08 16:58] LABS: Hematocrit 40 % (35-47); Hemoglobin 13.8 g/dl (12.0-16.0); Mean Corpuscular HGB Conc 35 g/dl (31-36); Mean Corpuscular Hemoglobin 29 pg (27-31); Mean Corpuscular Volume 85 fL (80-97); Mean Platelet Volume 9 um3 (7.4-10.4); Red Blood Count 4.69 10^6/ul (4.0-5.4); Red Cell Distribution Width 14 % (10.5-15); White Blood Count 9.6 10^3/ul (3.5-10.8)
[2016-09-08 17:20] LABS: ALT 17 U/L (7-52); AST 18 U/L (13-39); Albumin 4.2 g/dL (3.2-5.2); Alkaline Phosphatase 54 U/L (34-104); Anion Gap 7 mmol/L (2-11); BUN/Creatinine Ratio 13.8 (8-20); Blood Urea Nitrogen 9 mg/dL (6-24); C Reactive Protein 6.73 mg/L (< 5.00); CO2 Carbon Dioxide 26 mmol/L (22-32); Calcium 9.3 mg/dL (8.6-10.3); Chloride 102 mmol/L (101-111); EGFR African American 139.6 (>60); EGFR Non-African American 108.5 (>60); Globulin 3.3 g/dL (2-4); Glucose 95 mg/dL (70-100); Lipase 18 U/L (11.0-82.0); Potassium 3.2 mmol/L (3.5-5.0); Sodium 135 mmol/L (133-145); Total Protein 7.5 g/dL (6.4-8.9)
[2016-09-08 17:38] LABS: Urine Bilirubin Negative (Negative); Urine Glucose Negative (Negative); Urine Nitrite Negative (Negative)
--- NOTE | 2016-09-08 17:44 | RAD ---
INDICATION: Mid epigastric pain COMPARISON: None TECHNIQUE: Supine and upright views of the abdomen were obtained. FINDINGS: The small bowel and colon appear nondistended. No free intraperitoneal air is seen. No grossly abnormal or pathologic appearing calcifications are noted. Visualized bones are within normal limits for the patient's age. IMPRESSION: Normal abdominal radiograph.
--- NOTE | 2016-09-08 18:36 | ED ---
Bharat Wolfe Billy, scribed for Lebron Bah MD on 09/08/16 at 1715 . Abdominal Pain/Female - HPI Summary HPI Summary: Patient is a 26 year-old female coming to [facility] for evaluation of epigastric pain since 1300 today. She has had numerous episodes of nausea and vomiting. She says that pain is 3/10 at this time, but is worse with intermittent cramps. Her last episode of emesis was while she was on the way to the ED. Denies any CP or SOB. LMP on 08/21. Patient has a history of peptic ulcer disease and lupus. There is no household illness. - History of Current Complaint Chief Complaint: EDAbdPain Stated Complaint: VOMITING/DIARRHEA Time Seen by Provider: 09/08/16 16:12 Hx Obtained From: Patient Hx Last Menstrual Period: 07/26/16 Onset/Duration: Gradual Onset, Lasting Hours, Still Present Timing: Constant Severity Initially: Moderate Severity Currently: Moderate Pain Intensity: 3 Pain Scale Used: 0-10 Numeric Location: Epigastric Radiates: No Character: Cramping Aggravating Factor(s): Nothing Alleviating Factor(s): Nothing Associated Signs and Symptoms: Positive: Nausea, Vomiting. Negative: Fever, Chest Pain Allergies/Adverse Reactions: Allergies Allergy/AdvReac Type Severity Reaction Status Date / Time Azithromycin [From Zithromax] Allergy Rash Verified 08/18/16 14:32 Cefuroxime Allergy Anaphylatic Verified 08/18/16 14:32 Shock Guaifenesin [From Entex ER] Allergy Unknown Verified 08/18/16 14:32 Reaction Details Methylparaben [From Entex ER] Allergy Unknown Verified 08/18/16 14:32 Reaction Details Montelukast Allergy Hallucinati Verified 08/18/16 14:32 ons Penicillins [PCN] Allergy Hives Verified 08/18/16 14:32 Phenylephrine [From Entex ER] Allergy Unknown Verified 08/18/16 14:32 Reaction Details Propylparaben [From Entex ER] Allergy Unknown Verified 08/18/16 14:32 Reaction Details Shellfish Allergy Allergy Itchy and Verified 08/18/16 14:32 Erythemic Ears Sulfa Drugs Allergy Hives/Diff. Verified 08/18/16 14:32 Breathing/I tching Sumatriptan [From Imitrex] Allergy Hives Verified 08/18/16 14:32 Codeine AdvReac See Comment Verified 08/18/16 14:32 Ketorolac Tromethamine AdvReac Vomiting Verified 08/18/16 14:32 [From Toradol] grape flavoring Allergy Facial Uncoded 08/18/16 14:32 Swelling, Difficulty Breathing, and Wheezing PMH/Surg Hx/FS Hx/Imm Hx Endocrine/Hematology History: Denies: Hx Anticoagulant Therapy, Hx Diabetes, Hx Thyroid Disease Cardiovascular History: Reports: Other Cardiovascular Problems/Disorders - LUPUS Denies: Hx Congestive Heart Failure, Hx Deep Vein Thrombosis, Hx Hypertension , Hx Myocardial Infarction, Hx Pacemaker/ICD Respiratory History: Denies: Hx Asthma, Hx Chronic Obstructive Pulmonary Disease (COPD), Hx Lung Cancer, Hx Pneumonia, Hx Pulmonary Embolism GI History: Denies: Hx Gall Bladder Disease, Hx Gastrointestinal Bleed, Hx Ulcer, Hx Urosepsis History: Denies: Hx Kidney Stones, Hx Renal Disease Neurological History: Reports: Hx Headaches, Hx Migraine - She uses Imetrix- like pill for migraines. Denies: Hx Dementia, Hx Seizures, Hx Transient Ischemic Attacks (TIA) Psychiatric History: Reports: Hx Anxiety Denies: Hx Depression, Hx Schizophrenia, Hx Bipolar Disorder, Hx Substance Abuse - Surgical History Surgery Procedure, Year, and Place: WISDOM TEETH EXTRACTION. EAR TUBES Infectious Disease History: Yes Infectious Disease History: Denies: Hx Clostridium Difficile, Hx Hepatitis, Hx Human Immunodeficiency Virus (HIV), Hx Shingles, Hx Tuberculosis, Traveled Outside the [place] in Last 30 Days - Family History Known Family History: Positive: Cardiac Disease, Hypertension - Social History Alcohol Use: Occasionally Substance Use Type: Reports: None Smoking Status (MU): Never Smoked Tobacco Review of Systems Negative: Fever, Chills Negative: Chest Pain Negative: Shortness Of Breath Positive: Abdominal Pain, Vomiting, Nausea All Other Systems Reviewed And Are Negative: Yes Physical Exam - Summary Physical Exam Summary: VITAL SIGNS: Reviewed. GENERAL: Patient is a well developed and nourished female who is lying comfortable in the stretcher. Patient is not in any acute respiratory distress. HEAD AND FACE: Normocephalic EYES: PERRLA, EOMI x 2. EARS: Hearing grossly intact. MOUTH: Oropharynx within normal limits. NECK: Supple, trachea is midline, no adenopathy, no JVD, no carotid bruit. CHEST: Symmetric, no tenderness at palpation LUNGS: Clear to auscultation bilaterally. No wheezing or crackles. CVS: Regular rate and rhythm, S1 and S2 present, no murmurs or gallops appreciated. ABDOMEN: Soft. Mild epigastric tenderness. Bowel sounds are normal. No abdominal abnormal pulsations. EXTREMITIES: Full ROM in all major joints, no edema, no cyanosis or clubbing. NEURO: Alert and oriented x 3. No acute neurological deficits. Speech is normal and follows commands. SKIN: Dry and warm Triage Information Reviewed: Yes Vital Signs On Initial Exam: Initial Vitals Temp Pulse Resp BP Pulse Ox 96.8 F 86 20 130/65 96 09/08/16 16:03 09/08/16 16:03 09/08/16 16:03 09/08/16 16:03 09/08/16 16:03 Vital Signs Reviewed: Yes Diagnostics - Vital Signs Vital Signs Temp Pulse Resp BP Pulse Ox 09/08/16 16:29 98.3 F 84 14 114/61 99 09/08/16 16:03 96.8 F 86 20 130/65 96 - Laboratory Lab Results: Lab Results 09/08/16 09/08/16 09/08/16 Range/Units 16:50 16:50 16:50 WBC 9.6 (3.5-10.8) 10^3/ul RBC 4.69 (4.0-5.4) 10^6/ul Hgb 13.8 (12.0-16.0) g/dl Hct 40 (35-47) % MCV 85 (80-97) fL MCH 29 (27-31) pg MCHC 35 (31-36) g/dl RDW 14 (10.5-15) % Plt Count 215 (150-450) 10^3/ul MPV 9 (7.4-10.4) um3 Neut % (Auto) 75.9 (38-83) % Lymph % (Auto) 17.9 L (25-47) % [place] % (Auto) 5.3 (1-9) % Eos % (Auto) 0.5 (0-6) % Baso % (Auto) 0.4 (0-2) % Absolute Neuts (auto) 7.3 (1.5-7.7) 10^3/ul Absolute Lymphs (auto) 1.7 (1.0-4.8) 10^3/ul Absolute Monos (auto) 0.5 (0-0.8) 10^3/ul Absolute Eos (auto) 0 (0-0.6) 10^3/ul Absolute Basos (auto) 0 (0-0.2) 10^3/ul Absolute Nucleated RBC 0 10^3/ul Nucleated RBC % 0 D-Dimer, Quantitative 203 (Less Than 230) ng/mL Sodium 135 (133-145) mmol/L Potassium 3.2 L (3.5-5.0) mmol/L Chloride 102 (101-111) mmol/L Carbon Dioxide 26 (22-32) mmol/L Anion Gap 7 (2-11) mmol/L BUN 9 (6-24) mg/dL Creatinine 0.65 (0.51-0.95) mg/dL Est GFR ( Amer) 139.6 (>60) Est GFR (Non-Af Amer) 108.5 (>60) BUN/Creatinine Ratio 13.8 (8-20) Glucose 95 (70-100) mg/dL Calcium 9.3 (8.6-10.3) mg/dL Total Bilirubin 0.50 (0.2-1.0) mg/dL AST 18 (13-39) U/L ALT 17 (7-52) U/L Alkaline Phosphatase 54 (34-104) U/L C-Reactive Protein 6.73 H (< 5.00) mg/L Total Protein 7.5 (6.4-8.9) g/dL Albumin 4.2 (3.2-5.2) g/dL Globulin 3.3 (2-4) g/dL Albumin/Globulin Ratio 1.3 (1-3) Lipase 18 (11.0-82.0) U/L Beta HCG, Quant < 0.60 mIU/mL Urine Color Urine Appearance Urine pH (5-9) Ur Specific [place] (1.010-1.030) Urine Protein (Negative) Urine Ketones (Negative) Urine Blood (Negative) Urine Nitrate (Negative) Urine Bilirubin (Negative) Urine Urobilinogen (Negative) Ur Leukocyte Esterase (Negative) Urine Glucose (Negative) 09/08/16 Range/Units 17:26 WBC (3.5-10.8) 10^3/ul RBC (4.0-5.4) 10^6/ul Hgb (12.0-16.0) g/dl Hct (35-47) % MCV (80-97) fL MCH (27-31) pg MCHC (31-36) g/dl RDW (10.5-15) % Plt Count (150-450) 10^3/ul MPV (7.4-10.4) um3 Neut % (Auto) (38-83) % Lymph % (Auto) (25-47) % [place] % (Auto) (1-9) % Eos % (Auto) (0-6) % Baso % (Auto) (0-2) % Absolute Neuts (auto) (1.5-7.7) 10^3/ul Absolute Lymphs (auto) (1.0-4.8) 10^3/ul Absolute Monos (auto) (0-0.8) 10^3/ul Absolute Eos (auto) (0-0.6) 10^3/ul Absolute Basos (auto) (0-0.2) 10^3/ul Absolute Nucleated RBC 10^3/ul Nucleated RBC % D-Dimer, Quantitative (Less Than 230) ng/mL Sodium (133-145) mmol/L Potassium (3.5-5.0) mmol/L Chloride (101-111) mmol/L Carbon Dioxide (22-32) mmol/L Anion Gap (2-11) mmol/L BUN (6-24) mg/dL Creatinine (0.51-0.95) mg/dL Est GFR ( Amer) (>60) Est GFR (Non-Af Amer) (>60) BUN/Creatinine Ratio (8-20) Glucose (70-100) mg/dL Calcium (8.6-10.3) mg/dL Total Bilirubin (0.2-1.0) mg/dL AST (13-39) U/L ALT (7-52) U/L Alkaline Phosphatase (34-104) U/L C-Reactive Protein (< 5.00) mg/L Total Protein (6.4-8.9) g/dL Albumin (3.2-5.2) g/dL Globulin (2-4) g/dL Albumin/Globulin Ratio (1-3) Lipase (11.0-82.0) U/L Beta HCG, Quant mIU/mL Urine Color Yellow Urine Appearance Clear Urine pH 5.0 (5-9) Ur Specific [place] 1.009 L (1.010-1.030) Urine Protein Negative (Negative) Urine Ketones 1+ H (Negative) Urine Blood Negative (Negative) Urine Nitrate Negative (Negative) Urine Bilirubin Negative (Negative) Urine Urobilinogen Negative (Negative) Ur Leukocyte Esterase Negative (Negative) Urine Glucose Negative (Negative) Result Diagrams: 09/08/16 16:50 09/08/16 16:50 Lab Statement: Any lab studies that have been ordered have been reviewed, and results considered in the medical decision making process. - Radiology Abd xray Xray Interpretation: No Acute Changes Radiology Interpretation Completed By: Radiologist Re-Evaluation - Re-Evaluation First Eval Re-Evaluation Time: 18:06 Comment: Labs and imaging reviewed and discussed. Patient is tachycardic. Second Eval Re-Evaluation Time: 18:29 Comment: D-dimer value discussed with the patient. Abdominal Pain Fem Course/Dx - Course Course Of Treatment: Patient is a 26 year-old female coming to [facility] for evaluation of epigastric pain since 1300 today. She has had numerous episodes of nausea and vomiting. She says that pain is 3/10 at this time, but is worse with intermittent cramps. Her last episode of emesis was while she was on the way to the ED. Denies any CP or SOB. LMP on 08/21. Patient has a history of peptic ulcer disease and lupus. There is no household illness. Bloodwork WNL except for potassium 3.2. UA is negative. Abd x-ray shows no acute findings. In the ED course, patient was given a GI cocktail and protonix as well as Zofran. The patient continues to be tachycardic and she is taking oral contraceptive, therefore I will order D-dimer. It returned from the lab with a value of 203. Therefore, I have a low suspicion for PE. Patient will be discharged home to follow up with PCP. She will be given prescriptions for Zofran and Prilosec. She agrees to return to the ED with any worsening abdominal pain, SOB, dizziness , fevers, chills, or near-syncope. I discussed all the findings and test results with the patient. Patient was instructed to return to the emergency room immediately if any of the symptoms return or worsens. Plan of care was discussed with the patient and understands and agrees. All questions were answered at patient satisfaction. There were no further complaints or concerns. Lung exam before discharge: CTA B/L. Good air exchange. No wheezing or crackles heard. CVS: S1 and S2 present. No murmurs appreciated. Patient is alert and oriented x 3. Patient is hemodynamically stable. Patient will be discharged home with follow up pressure sealer and tester in the next 2-3 days - Diagnoses Differential Diagnosis: Positive: Constipation, Other - GERD, Gastritis, PUD Provider Diagnoses: Epigastric pain Discharge - Discharge Plan Condition: Stable Disposition: HOME Prescriptions: Omeprazole CAP* [Prilosec CAP* 20 MG] 20 mg PO BID #28 cap. Ondansetron TAB* [Zofran 4 MG Tab*] 4 mg PO Q6H PRN #10 tab PRN Reason: Vomiting Patient Education Materials: Epigastric Pain (ED) Referrals: Paxton Mansfield MD [Primary Care Provider] - Additional Instructions: Return to the ED with any worsening abdominal pain, shortness of breath, dizziness, fevers, chills, or near-syncope. The documentation as recorded by the Bharat reece Billy accurately reflects the service I personally performed and the decisions made by , Lebron Bah MD.
[2016-09-08 18:44] VITALS: BP 94/56
== END 2016-09-08 18:43 | disposition home or self-care (01) ==
LOC: ED 16:02
DX: R10.13 Epigastric pain (principal); R11.2 Nausea with vomiting, unspecified
CPT/HCPCS: 36415; 74020; 80053; 81003; 83690; 84702; 85025; 85379; 86140; 96360; 99283; A9270-GY

== ENCOUNTER 2016-11-15 21:01 | Emergency (ER) | payer BC ==
[2016-11-15 21:16] VITALS: BP 106/43
--- NOTE | 2016-11-15 21:31 | UC ---
Throat Pain/Nasal Micheal HPI - HPI Summary HPI Summary: ST since yest. Has a young son and strep is going around his school. Pt has lupus. No fever. No cough. Sees blisters in the back of her throat. No blisters or sores on hands or feet. - History of Current Complaint Chief Complaint: UCRespiratory Stated Complaint: SORE THROAT Time Seen by Provider: 11/15/16 21:27 Hx Obtained From: Patient Hx Last Menstrual Period: 11/11/16 ?: No Onset/Duration: Sudden Onset, Lasting Days, Still Present Severity: Moderate Pain Intensity: 5 Pain Scale Used: 0-10 Numeric Cough: None Associated Signs & Symptoms: Positive: Dysphagia, Sinus Discomfort, Other - right ear pain. Negative: Fever - Allergies/Home Medications Allergies/Adverse Reactions: Allergies Allergy/AdvReac Type Severity Reaction Status Date / Time Azithromycin [From Zithromax] Allergy Rash Verified 11/15/16 21:15 Cefuroxime Allergy Anaphylatic Verified 11/15/16 21:15 Shock Guaifenesin [From Entex ER] Allergy Unknown Verified 11/15/16 21:15 Reaction Details Methylparaben [From Entex ER] Allergy Unknown Verified 11/15/16 21:15 Reaction Details Montelukast Allergy Hallucinati Verified 11/15/16 21:15 ons Penicillins [PCN] Allergy Hives Verified 11/15/16 21:15 Phenylephrine [From Entex ER] Allergy Unknown Verified 11/15/16 21:15 Reaction Details Propylparaben [From Entex ER] Allergy Unknown Verified 11/15/16 21:15 Reaction Details Shellfish Allergy Allergy Itchy and Verified 11/15/16 21:15 Erythemic Ears Sulfa Drugs Allergy Hives/Diff. Verified 11/15/16 21:15 Breathing/I tching Sumatriptan [From Imitrex] Allergy Hives Verified 11/15/16 21:15 Codeine AdvReac See Comment Verified 11/15/16 21:15 Ketorolac Tromethamine AdvReac Vomiting Verified 11/15/16 21:15 [From Toradol] grape flavoring Allergy Facial Uncoded 11/15/16 21:15 Swelling, Difficulty Breathing, and Wheezing PMH/Surg Hx/FS Hx/Imm Hx Previously Healthy: No - lupus Other History Of: Negative For: HIV, Hepatitis B, Hepatitis C, Anticoagulant Therapy - Surgical History Surgical History: Yes Surgery Procedure, Year, and Place: WISDOM TEETH EXTRACTION. EAR TUBES - Family History Known Family History: Positive: Cardiac Disease, Hypertension - Social History Lives: With Family Alcohol Use: Occasionally Substance Use Type: None Smoking Status (MU): Never Smoked Tobacco - Immunization History Most Recent Influenza Vaccination: 03/10/16 Most Recent Tetanus Shot: 2 yrs ago Review of Systems Constitutional: Negative Skin: Negative Eyes: Negative ENT: Sore Throat, Ear Ache Respiratory: Negative Cardiovascular: Negative Gastrointestinal: Negative Genitourinary: Negative Motor: Negative Neurovascular: Negative Musculoskeletal: Negative Neurological: Negative Psychological: Negative All Other Systems Reviewed And Are Negative: Yes Physical Exam Triage Information Reviewed: Yes Appearance: Well-Nourished, Ill-Appearing, Pain Distress Vital Signs: Initial Vital Signs Temp 98.0 F 11/15/16 21:09 Pulse 84 11/15/16 21:09 Resp 14 11/15/16 21:09 BP 106/43 11/15/16 21:09 Pulse Ox 99 11/15/16 21:09 Vital Signs Reviewed: Yes Eyes: Positive: Conjunctiva Clear ENT: Positive: Pharyngeal erythema, Nasal congestion, TM red - right, Other: - vesicles on uvula and post pharynx, few Neck: Positive: Supple, Nontender, No Lymphadenopathy Respiratory: Positive: Lungs clear, Normal breath sounds, No respiratory distress Cardiovascular: Positive: RRR, No Murmur, Pulses Normal, Brisk Capillary Refill Musculoskeletal: Positive: Strength Intact, ROM Intact Neurological: Positive: Alert, Muscle Tone Normal Psychological Exam: Normal Skin Exam: Normal Skin: Negative: rashes Throat Pain/Nasal Course/Dx - Course Course Of Treatment: rapid A neg - Differential Dx/Diagnosis Differential Diagnosis/HQI/PQRI: Otitis Media, Pharyngitis, Sinusitis, URI Provider Diagnoses: right OM. pharyngitis. hx lupus erythematosis Discharge - Discharge Plan Condition: Stable Disposition: HOME Prescriptions: DOXYcycline CAP(*) [DOXYcycline 100MG CAP(*)] 100 mg PO BID #20 cap predniSONE TAB* [Deltasone TAB*] 40 mg PO DAILY #10 tab Patient Education Materials: Pharyngitis (ED), Otitis Media (ED) Referrals: Paxton Mansfield MD [Primary Care Provider] - Additional Instructions: Liquid antacid and benadryl combined in equal parts (eg 10cc) is "magic mouthwash". Maybe that will help your throat pain. Your strep test was negative. I have sent a prescription for prednisone. Check with Dr. Baum to get guidance about whether to take this. it may help swelling in the back of your throat. You may need the prednisone as stress doses while you are sick, because of your lupus. We have prescribed doxycycline 100mg twice a day for 10 days to treat a right ear infection. Doxycycline will also help with a sinus infection. Return to urgent care if you have any new or worsening symptoms.
[2016-11-15] MEDS ORDERED: DOXYcycline CAP(*) 100 MG PO ONE (22:06)
== END 2016-11-15 22:13 | disposition home or self-care (01) ==
LOC: UCCORT 21:01
DX: H66.91 Otitis media, unspecified, right ear (principal); J02.9 Acute pharyngitis, unspecified; L93.0 Discoid lupus erythematosus
CPT/HCPCS: 87651; 99212; A9270-GY; G0463

== ENCOUNTER 2017-02-14 16:38 | Emergency (ER) | payer BC ==
--- NOTE | 2017-02-14 16:40 | UC ---
Cardiac HPI - HPI Summary HPI Summary: 26 YEAR OLD FEMALE PRESENTS WITH LEFT SIDED CHEST PAIN AND SHORTNESS OF BREATH. I WILL SEND HER TO THE ER TO RULE OUT PE VS TX - History of Current Complaint Stated Complaint: CHEST PAIN Time Seen by Provider: 02/14/17 16:39 Hx Obtained From: Patient Hx Last Menstrual Period: 11/11/16 Onset/Duration: Sudden Onset Timing: Intermittent Episodes Lasting: Initial Severity: Moderate Current Severity: Moderate Chest Pain Location: Upper Sternal, Left Anterior - Allergy/Home Medications Allergies/Adverse Reactions: Allergies Allergy/AdvReac Type Severity Reaction Status Date / Time Azithromycin [From Zithromax] Allergy Rash Verified 02/14/17 16:47 Cefuroxime Allergy Anaphylatic Verified 02/14/17 16:47 Shock Guaifenesin [From Entex ER] Allergy Unknown Verified 02/14/17 16:47 Reaction Details Methylparaben [From Entex ER] Allergy Unknown Verified 02/14/17 16:47 Reaction Details Montelukast Allergy Hallucinati Verified 02/14/17 16:47 ons Penicillins [PCN] Allergy Hives Verified 02/14/17 16:47 Phenylephrine [From Entex ER] Allergy Unknown Verified 02/14/17 16:47 Reaction Details Propylparaben [From Entex ER] Allergy Unknown Verified 02/14/17 16:47 Reaction Details Shellfish Allergy Allergy Itchy and Verified 02/14/17 16:47 Erythemic Ears Sulfa Drugs Allergy Hives/Diff. Verified 02/14/17 16:47 Breathing/I tching Sumatriptan [From Imitrex] Allergy Hives Verified 02/14/17 16:47 Codeine AdvReac See Comment Verified 02/14/17 16:47 Ketorolac Tromethamine AdvReac Vomiting Verified 02/14/17 16:47 [From Toradol] grape flavoring Allergy Facial Uncoded 11/15/16 21:15 Swelling, Difficulty Breathing, and Wheezing Home Medications: Home Medications Lysine [l-Lysine] 02/14/17 [History Confirmed 02/14/17] PMH/Surg Hx/FS Hx/Imm Hx Other History Of: Negative For: HIV, Hepatitis B, Hepatitis C, Anticoagulant Therapy - Surgical History Surgical History: Yes Surgery Procedure, Year, and Place: WISDOM TEETH EXTRACTION. EAR TUBES - Family History Known Family History: Positive: Cardiac Disease, Hypertension - Social History Alcohol Use: Occasionally Substance Use Type: None Smoking Status (MU): Never Smoked Tobacco - Immunization History Most Recent Influenza Vaccination: 03/10/16 Most Recent Tetanus Shot: 2 yrs ago Review of Systems Constitutional: Negative Skin: Negative Eyes: Negative ENT: Negative Respiratory: Shortness Of Breath Cardiovascular: Chest Pain Gastrointestinal: Negative Genitourinary: Negative Motor: Negative Neurovascular: Negative Musculoskeletal: Negative Neurological: Negative Psychological: Negative All Other Systems Reviewed And Are Negative: Yes Physical Exam Triage Information Reviewed: Yes Eye Exam: Normal ENT Exam: Normal Dental Exam: Normal Neck exam: Normal Neck: Positive: 1 Respiratory Exam: Normal Cardiovascular Exam: Normal Abdominal Exam: Normal Musculoskeletal Exam: Normal Neurological Exam: Normal Psychological Exam: Normal Skin Exam: Normal - Clinical Impression Provider Diagnoses: CHEST PAIN. SHORTNESS OF BREATH Discharge - Discharge Plan Condition: Guarded Disposition: AGAINST MEDICAL ADVICE Patient Education Materials: Chest Pain (ED) Referrals: Paxton Mansfield MD [Primary Care Provider] -
[2017-02-14 16:47] VITALS: BP 144/79
== END 2017-02-14 16:56 | disposition left against medical advice (07) ==
LOC: UCEAST 16:38
DX: R07.9 Chest pain, unspecified (principal); R06.02 Shortness of breath; Z53.21 Procedure and treatment not carried out due to patient leaving prior to being seen by health care provider
CPT/HCPCS: 93005; 99212; G0463

== ENCOUNTER → 2017-02-14 19:15 | Emergency (ER) | payer BC ==
[2017-02-14 20:53] VITALS: BP 0/0
== END | disposition left against medical advice (07) ==
LOC: ED 19:15
DX: R07.9 Chest pain, unspecified (principal); Z53.21 Procedure and treatment not carried out due to patient leaving prior to being seen by health care provider
CPT/HCPCS: 93005

== ENCOUNTER 2017-02-28 07:09 | Emergency (ER) | payer BC ==
[2017-02-28 07:27] VITALS: BP 119/70
--- NOTE | 2017-02-28 08:01 | UC ---
Skin Complaint HPI - HPI Summary HPI Summary: Pt with a h/o SLE is on plaqunil present to with multiple complaints including 1) left eye reddness and drainage. + itching. + contact lens wearer. No contact at present. Pt denies vision changes. No f/b sensation. no pain 2) pt with guage in right ear - states x 24 hours increased reddness and swelling of lobe no fluctance no discharge 3) Pt with sore throat and sinus congestion since yesterday. - History of Current Complaint Chief Complaint: UCRespiratory Time Seen by Provider: 02/28/17 07:22 Stated Complaint: EYE COMPLAINT,SORE THROAT Hx Obtained From: Patient Hx Last Menstrual Period: 02/04/17 Onset/Duration: Gradual Onset Skin Exposure Onset/Duration: Days Ago Timing: Constant Onset Severity: Moderate Current Severity: Moderate Location: Discrete - right ear lobe, Other - left eye Associated Signs & Symptoms: Positive: Tenderness. Negative: Nausea, Vomiting, Fever, Drainage - Allergy/Home Medications Allergies/Adverse Reactions: Allergies Allergy/AdvReac Type Severity Reaction Status Date / Time Azithromycin [From Zithromax] Allergy Rash Verified 02/28/17 07:28 Cefuroxime Allergy Anaphylatic Verified 02/28/17 07:28 Shock Guaifenesin [From Entex ER] Allergy Unknown Verified 02/28/17 07:28 Reaction Details Methylparaben [From Entex ER] Allergy Unknown Verified 02/28/17 07:28 Reaction Details Montelukast Allergy Hallucinati Verified 02/28/17 07:28 ons Penicillins [PCN] Allergy Hives Verified 02/28/17 07:28 Phenylephrine [From Entex ER] Allergy Unknown Verified 02/28/17 07:28 Reaction Details Propylparaben [From Entex ER] Allergy Unknown Verified 02/28/17 07:28 Reaction Details Shellfish Allergy Allergy Itchy and Verified 02/28/17 07:28 Erythemic Ears Sulfa Drugs Allergy Hives/Diff. Verified 02/28/17 07:28 Breathing/I tching Sumatriptan [From Imitrex] Allergy Hives Verified 02/28/17 07:28 Codeine AdvReac See Comment Verified 02/28/17 07:28 Ketorolac Tromethamine AdvReac Vomiting Verified 02/28/17 07:28 [From Toradol] grape flavoring Allergy Facial Uncoded 02/28/17 07:28 Swelling, Difficulty Breathing, and Wheezing Review of Systems Constitutional: Fatigue Skin: Other - right ear lobe Eyes: Drainage, Eye Redness ENT: Nasal Discharge, Sinus Congestion Is Patient Immunocompromised?: Yes - SLE All Other Systems Reviewed And Are Negative: Yes PMH/Surg Hx/FS Hx/Imm Hx Previously Healthy: Yes Other History Of: Negative For: HIV, Hepatitis B, Hepatitis C, Anticoagulant Therapy - Surgical History Surgical History: Yes Surgery Procedure, Year, and Place: WISDOM TEETH EXTRACTION. EAR TUBES - Family History Known Family History: Positive: Cardiac Disease, Hypertension - Social History Occupation: Employed Full-time Lives: With Family Alcohol Use: Occasionally Substance Use Type: None Smoking Status (MU): Never Smoked Tobacco - Immunization History Most Recent Influenza Vaccination: 03/10/16 Most Recent Tetanus Shot: 2 yrs ago Physical Exam Triage Information Reviewed: Yes Appearance: Well-Appearing, No Pain Distress, Well-Nourished Vital Signs: Initial Vital Signs Temp 97.8 F 02/28/17 07:21 Pulse 94 02/28/17 07:21 Resp 20 02/28/17 07:21 BP 119/70 02/28/17 07:21 Vital Signs Reviewed: Yes Eyes: Positive: Other: - left eye + injected yellow discharge JOHANNA. EOM intact and full ENT Exam: Normal ENT: Positive: TMs normal, Other: - turbinates inflammed and boggy Dental Exam: Normal Neck exam: Normal Neck: Positive: Supple, Nontender Respiratory Exam: Normal Respiratory: Positive: Chest non-tender, Lungs clear, Normal breath sounds, No respiratory distress, No accessory muscle use Cardiovascular Exam: Normal Cardiovascular: Positive: RRR, No Murmur Abdominal Exam: Normal Abdomen Description: Positive: Nontender, No Organomegaly, Soft Bowel Sounds: Positive: Present Musculoskeletal Exam: Normal Neurological Exam: Normal Neurological: Positive: Alert Psychological Exam: Normal Skin: Positive: Other - right earlobe with erythema. no mastoid pain No fluctuance. no discharge. no induration or fluctuance No cartilage involvement Course/Dx - Course Course Of Treatment: Pt with conjunctivitis left eye and cellulitis right ear. Pt immunocompromised on Plaquenil. Pt with multiple allergies. will give doxy and cipro drops. d/w pt regarding secretion hygeine. d/w pt regarding contact. return precautions discussed. moist heat to ear. pt comforrtable and in agreement with plan - Diagnoses Provider Diagnoses: cellulitis, conjunctivitis,. URI Discharge - Discharge Plan Condition: Stable Disposition: HOME Prescriptions: Ciprofloxacin 0.3% OPTH.JOHANN* [Cipro 0.3% Opth*] 1 drop LEFT EYE Q8HR #1 btl DOXYcycline CAP(*) [DOXYcycline 100MG CAP(*)] 100 mg PO BID #20 cap Patient Education Materials: Cellulitis (ED), Upper Respiratory Infection (ED) , Conjunctivitis (ED) Forms: *Work Release Referrals: Paxton Mansfield MD [Primary Care Provider] - Additional Instructions: - take antibiotics as prescribed until gone - Alternate ibuprofen (motrin, advil) and tylenol every 3 hours for pain - - After you have been on antibiotics for 2 days - change your toothbrush and your pillowcase. These infections are spread by secretions - do NOT share eating or drinking utensils - clean items you share with other people such as cell phones, computer mouse, TV remote, computer tablets, etc - apply warm soaks to your left ear lobe 3 times a day apply eye drops to left eye every 8 hours for 5 days -throw out the contact you were wearing -do not use contacts until you have completed antibiotic course contact your doctor to schedule a follow-up appointment this week. Contact your doctor or return with questions or concerns
== END 2017-02-28 08:11 | disposition home or self-care (01) ==
LOC: UCCORT 07:09
DX: J06.9 Acute upper respiratory infection, unspecified (principal); H10.32 Unspecified acute conjunctivitis, left eye; M32.9 Systemic lupus erythematosus, unspecified; Z88.0 Allergy status to penicillin; Z91.013 Allergy to seafood; Z88.2 Allergy status to sulfonamides; Z88.5 Allergy status to narcotic agent
CPT/HCPCS: 87651; 99212; G0463

== ENCOUNTER 2017-09-10 17:54 | Emergency (ER) | payer BC ==
[2017-09-10 18:46] VITALS: BP 103/74
--- NOTE | 2017-09-10 19:06 | UC ---
Throat Pain/Nasal Micheal HPI - HPI Summary HPI Summary: Pt c/o nasal congestion, PND, sinus pressure and tenderness X 2 weeks. - History of Current Complaint Chief Complaint: UCGeneralIllness Stated Complaint: THROAT,SINUS,EAR COMPLAINT Time Seen by Provider: 09/10/17 18:52 Hx Obtained From: Patient Hx Last Menstrual Period: 08/10/17 ?: No Onset/Duration: Gradual Onset, Lasting Weeks Severity: Moderate Pain Intensity: 0 Cough: None Associated Signs & Symptoms: Positive: Dysphagia, Sinus Discomfort Related History: Seasonal Allergies - Epiglottits Risk Factors Epiglottis Risk Factors: Negative - Allergies/Home Medications Allergies/Adverse Reactions: Allergies Allergy/AdvReac Type Severity Reaction Status Date / Time azithromycin Allergy Rash Verified 09/10/17 18:59 cefuroxime Allergy Anaphylatic Verified 09/10/17 18:59 Shock guaifenesin Allergy Unknown Verified 09/10/17 18:59 Reaction Details ketorolac Allergy Vomiting Verified 09/10/17 18:59 methylparaben Allergy Unknown Verified 09/10/17 18:59 Reaction Details Penicillins Allergy Hives Verified 09/10/17 18:59 phenylephrine Allergy Unknown Verified 09/10/17 18:59 Reaction Details shellfish derived Allergy ITCHY AND Verified 09/10/17 18:59 ERYTHEMIC EARS Sulfa (Sulfonamide Allergy Hives/Diff. Verified 09/10/17 18:59 Antibiotics) Breathing/I tching sumatriptan Allergy Hives Verified 09/10/17 18:59 codeine AdvReac See Comment Verified 09/10/17 18:59 montelukast AdvReac Hallucinati Verified 09/10/17 18:59 ons grape flavoring Allergy Facial Uncoded 02/28/17 07:28 Swelling, Difficulty Breathing, and Wheezing PROPYLPARABEN Allergy Unknown Uncoded 09/10/17 18:59 Reaction Details Home Medications: Home Medications Vitamin TAB* 1 tab PO BEDTIME 09/10/17 [History Confirmed 09/10/17] PMH/Surg Hx/FS Hx/Imm Hx Previously Healthy: Yes Other History Of: Negative For: HIV, Hepatitis B, Hepatitis C, Anticoagulant Therapy - Surgical History Surgical History: Yes Surgery Procedure, Year, and Place: WISDOM TEETH EXTRACTION. EAR TUBES - Family History Known Family History: Positive: Cardiac Disease, Hypertension - Social History Occupation: Employed Full-time Lives: With Family Alcohol Use: Rare Substance Use Type: None Smoking Status (MU): Never Smoked Tobacco Have You Smoked in the Last Year: No - Immunization History Most Recent Influenza Vaccination: 03/10/16 Most Recent Tetanus Shot: 2 yrs ago Review of Systems Constitutional: Chills, Fatigue Skin: Negative Eyes: Negative ENT: Sinus Congestion, Sinus Pain/Tenderness Respiratory: Negative Cardiovascular: Negative Gastrointestinal: Negative Genitourinary: Negative Motor: Negative Neurovascular: Negative Musculoskeletal: Negative Neurological: Headache Psychological: Negative Is Patient Immunocompromised?: No All Other Systems Reviewed And Are Negative: Yes Physical Exam Triage Information Reviewed: Yes Appearance: Well-Appearing Vital Signs: Initial Vital Signs Temp 98 F 09/10/17 18:39 Pulse 85 09/10/17 18:39 Resp 18 09/10/17 18:39 BP 103/74 09/10/17 18:39 Pulse Ox 100 09/10/17 18:39 Vital Signs Reviewed: Yes Eye Exam: Normal ENT Exam: Other ENT: Positive: Nasal congestion, Sinus tenderness Dental Exam: Normal Neck exam: Normal Respiratory Exam: Normal Cardiovascular Exam: Normal Musculoskeletal Exam: Normal Neurological Exam: Normal Psychological Exam: Normal Skin Exam: Normal Throat Pain/Nasal Course/Dx - Differential Dx/Diagnosis Differential Diagnosis/HQI/PQRI: Influenza, Sinusitis, URI Provider Diagnoses: sinusitis Discharge - Sign-Out/Discharge Documenting (check all that apply): Discharge - Discharge Plan Condition: Stable Disposition: HOME Prescriptions: Cetirizine* [ZyrTEC 10 MG TAB*] 10 mg PO DAILY #10 tab DOXYcycline CAP(*) [DOXYcycline 100MG CAP(*)] 100 mg PO Q12H #20 cap Patient Education Materials: Sinusitis (ED) Referrals: Paxton Mansfield MD [Primary Care Provider] - If Needed - Billing Disposition and Condition Condition: STABLE Disposition: HOME
== END 2017-09-10 19:13 | disposition home or self-care (01) ==
LOC: UCCORT 17:54
DX: J32.9 Chronic sinusitis, unspecified (principal); Z88.6 Allergy status to analgesic agent; Z88.1 Allergy status to other antibiotic agents; Z88.0 Allergy status to penicillin; Z88.8 Allergy status to other drugs, medicaments and biological substances; Z88.2 Allergy status to sulfonamides; Z88.5 Allergy status to narcotic agent; Z91.013 Allergy to seafood
CPT/HCPCS: 99212; G0463

== ENCOUNTER 2017-10-02 18:36 | Emergency (ER) | payer BC ==
[2017-10-02 19:15] VITALS: BP 112/64
[2017-10-02] MEDS ORDERED: HYDROcodone/ACETAMIN 5-325 MG* 1 TAB PO ONE (20:36)
--- NOTE | 2017-10-02 20:42 | UC ---
Hand/Wrist HPI - HPI Summary HPI Summary: Approx 18:30 this evening, accidently poured boiling water onto L hand, while straining spaghetti. Hurt immediately. Poured cold water onto hand, but didn' t help. Has noticed some blisters, not yet broken. - History Of Current Complaint Chief Complaint: UCBurn Stated Complaint: BURN LEFT HAND Time Seen by Provider: 10/02/17 20:15 Hx Obtained From: Patient Hx Last Menstrual Period: 08/10/17 Pain Intensity: 6 - Allergies/Home Medications Allergies/Adverse Reactions: Allergies Allergy/AdvReac Type Severity Reaction Status Date / Time azithromycin Allergy Rash Verified 10/02/17 19:15 cefuroxime Allergy Anaphylatic Verified 10/02/17 19:15 Shock guaifenesin Allergy Unknown Verified 10/02/17 19:15 Reaction Details ketorolac Allergy Vomiting Verified 10/02/17 19:15 methylparaben Allergy Unknown Verified 10/02/17 19:15 Reaction Details Penicillins Allergy Hives Verified 10/02/17 19:15 phenylephrine Allergy Unknown Verified 10/02/17 19:15 Reaction Details shellfish derived Allergy ITCHY AND Verified 10/02/17 19:15 ERYTHEMIC EARS Sulfa (Sulfonamide Allergy Hives/Diff. Verified 10/02/17 19:15 Antibiotics) Breathing/I tching sumatriptan Allergy Hives Verified 10/02/17 19:15 codeine AdvReac See Comment Verified 10/02/17 19:15 montelukast AdvReac Hallucinati Verified 10/02/17 19:15 ons grape flavoring Allergy Facial Uncoded 10/02/17 19:15 Swelling, Difficulty Breathing, and Wheezing PROPYLPARABEN Allergy Unknown Uncoded 10/02/17 19:15 Reaction Details PMH/Surg Hx/FS Hx/Imm Hx Previously Healthy: Yes - undergoing tx for lupus (plaquenil) Other History Of: Negative For: HIV, Hepatitis B, Hepatitis C, Anticoagulant Therapy - Surgical History Surgical History: Yes Surgery Procedure, Year, and Place: WISDOM TEETH EXTRACTION. EAR TUBES - Family History Known Family History: Positive: Cardiac Disease, Hypertension - Social History Occupation: Employed Full-time Alcohol Use: Rare Substance Use Type: None Smoking Status (MU): Never Smoked Tobacco Have You Smoked in the Last Year: No - Immunization History Most Recent Influenza Vaccination: 10/05/16 Most Recent Tetanus Shot: 2 yrs ago Review of Systems Constitutional: Negative Skin: Other - see hpi Eyes: Negative ENT: Negative Respiratory: Negative Cardiovascular: Negative Gastrointestinal: Negative Genitourinary: Negative Motor: Other - see hpi Neurovascular: Negative - see hpi Musculoskeletal: Other: - see hpi Neurological: Negative Psychological: Negative Is Patient Immunocompromised?: No All Other Systems Reviewed And Are Negative: Yes Physical Exam Triage Information Reviewed: Yes Appearance: Well-Appearing - looks tired, but NAD., Well-Nourished Vital Signs: Initial Vital Signs Temp 98.5 F 10/02/17 19:11 Pulse 71 10/02/17 19:11 Resp 16 10/02/17 19:11 BP 112/64 10/02/17 19:11 Pulse Ox 100 10/02/17 19:11 Vital Signs Reviewed: Yes Eye Exam: Normal - grossly normal ENT Exam: Normal - grossly normal Neck exam: Normal - no c/o, detailed exam not done Respiratory Exam: Normal - no tachypnea, no dyspnea, normal resp rate Cardiovascular Exam: Normal - heart rate normal. Nondiaphoretic. Good cap refill Abdominal Exam: Normal - no c/o Musculoskeletal Exam: Normal - see "skin" re L hand Neurological Exam: Normal - grossly nonfocal, detailed exam not done Psychological Exam: Normal - conversing easily and appropriately Skin Exam: Other - normal except L hand: + redness and swelling over dorsal L hand including thenar eminence. CR < 2 sec x 5 digits. + sens LT present x 5 digits (although reports feels "prickly") scattered small early blisters, no drainage Moves hand well, mild swelling. Hand/Wrist Course/Dx - Course Course Of Treatment: Reviewed tx plan / coa with Ms. Saldaña. She has prednisone at home, doesn't really like to take it. Will consider it, if so then 40mg po x 1. Also norco x 2 dispensed to go home (+narc talk, and denies hx or household hx of addiction). Questions as posed answered to the best of my ability. - Differential Dx/Diagnosis Provider Diagnoses: L hand burn, 1st and 2nd degree. Approx 2% bsa. Discharge - Sign-Out/Discharge Documenting (check all that apply): Discharge/Admit/Transfer - Discharge Plan Condition: Stable Disposition: HOME Patient Education Materials: Second Degree Burn (ED) Forms: *Work Release Referrals: Paxton Mansfield MD [Primary Care Provider] - Additional Instructions: Follow up with Dr. Mansfield, per routine. Seek medical attention for worse or new problems in the meantime. Elevate hand frequently. If blisters break, then over the counter bacitracin, thin layer 1-2 x / day for 5 days. Consider prednisone 40mg x 1 tonight. May interfere with your sleep pattern tonight. Solo - Billing Disposition and Condition Condition: STABLE Disposition: HOME
== END 2017-10-02 20:56 | disposition home or self-care (01) ==
LOC: UCCORT 18:36
DX: T23.202A Burn of second degree of left hand, unspecified site, initial encounter (principal); T31.0 Burns involving less than 10% of body surface; X12.XXXA Contact with other hot fluids, initial encounter; Y93.G3 Activity, cooking and baking; Y92.9 Unspecified place or not applicable; Z88.3 Allergy status to other anti-infective agents; Z88.0 Allergy status to penicillin; Z88.8 Allergy status to other drugs, medicaments and biological substances; Z88.2 Allergy status to sulfonamides
CPT/HCPCS: 99211; G0463

== ENCOUNTER 2017-11-09 16:52 | Emergency (ER) | payer BC ==
--- OUTSIDE RECORDS SUMMARY | 2017-11-09 16:59 | XMS REPORT ---
:1990 External Reference #:[id number] Author Organization [facility] Address [address] [address] Phone [phone] Care Team Providers Name Role Phone Mary Pike MD Care Team Information [employer] Department Manager Unavailable Paxton Mansfield MD Primary Care Physician Unavailable Payers Type Date Identification Numbers Payment Provider Subscriber Health Maintenance Policy Number: [facility] Justin Saldaña [facility] (O) [id number] PayID: [id number] [address] [place] [id number] Problems Description No Information Social History Type Date Description Comments Smoking Patient has never smoked General Hx Text lives with her , no new partners Allergies, Adverse Reactions, Alerts Date Description Reaction Status Severity Comments 08/23/2016 Sulfa Antibiotics excessive somnolence active 08/23/2016 Cefuroxime Anaphylaxis active 08/23/2016 Grape Flavoring active 08/23/2016 Montelukast hallucinations active 08/23/2016 Azithromycin rash active 08/23/2016 Penicillin rash active 08/23/2016 Imitrex hives with injections active Medications Medication Date Status Form Strength Qnty SIG Indications Ordering Provider Metoclopramide HCL / Active Tablets 10mg 1 by Unknown 0000 mouth every 8 hrs as needed for nausea Plaquenil / Active Tablets 200mg 1 by Unknown 0000 mouth every day Clonazepam / Active Tablets 0.5mg 1 by Unknown 0000 mouth twice daily Hydrochlorothiazide / Active Tablets 12.5mg 1 by Unknown 0000 mouth every day Ortho-Cyclen (28) / Active Tablets 0.25-35mg 1 by Unknown 0000 -mcg mouth every day Valacyclovir HCL 09/03/ Hx Tablets 1gm 30tab 1 A60.04 Perry 2016 - tablet D. 11/02/ by Macqueen, 2018 mouth M.D. twice daily Valacyclovir HCL 08/23/ Hx Tablets 500mg 30tab 1 tab A60.04 Perry 2017 - s by Nba mouth Keyshawn, 2016 daily M.DJovi Metronidazole / Hx Tablets 500mg 1 tab Manjula 0000 - by MD Kostas mouth 2016 twice daily Doxycycline Hyclate / Hx Capsules 100mg 1 by Manjula 0000 - mouth MD Kostas twice 2017 daily Hydrocodone-Acetamino Hx Tablets 10-325mg 1-2 Cristino, denisse 0000 - tabs by MD Joaquín mouth 2018 times daily as needed Levofloxacin Hx Tablets 500mg once Manjula - daily MD Kostas 2016 Valacyclovir HCL / Hx Tablets 1gm 1 by Kevin 0000 - mouth Maci 08/23/ twice [email or web address] daily RN DOCUMENT IMPROVEMENT-C Vital Signs Date Vital Result Comment 11/03/2017 Height 60 inches 5'0" Weight 138.00 lb Heart Rate 84 /min BP Systolic Sitting 110 mmHg BP Diastolic Sitting 80 mmHg Respiratory Rate 14 /min Body Temperature 98.2 F BMI (Body Mass Index) 26.9 kg/m2 09/29/2016 Height 60 inches 5'0" Weight 132.50 lb Heart Rate 84 /min BP Systolic Sitting 102 mmHg BP Diastolic Sitting 64 mmHg Respiratory Rate 14 /min Body Temperature 98.6 F BMI (Body Mass Index) 25.9 kg/m2 08/23/2016 Height 60 inches 5'0" Weight 135.00 lb Heart Rate 72 /min BP Systolic Sitting 108 mmHg BP Diastolic Sitting 76 mmHg Respiratory Rate 14 /min Body Temperature 97.6 F BMI (Body Mass Index) 26.4 kg/m2 Results Description No Information Procedures Description No Information Encounters Type Date Location Provider CPT E/M Dx Office Visit 09/29/2016 Silvana Arango [id number] A60.04 4:00p Infectious Diseases Penelope Mahajan R59.0 Office Visit 08/23/2016 1:40p Silvana Mahajan, [address] A60.04 Infectious Theodore Negrete Plan of Care Future Appointment(s):11/24/2017 4:00 pm - Perry Mahajan M.D[facility] at [facility]/31/2018 - Perry Mahajan M.D.M79.605 Pain in left legComments:no palpable nodes today ?inguinal hernia given postional componentReferral:Yann Nielson MD, Surgery,GeneralFollow up:3 weeks
[2017-11-09 17:27] VITALS: BP 98/60
== END 2017-11-09 18:14 | disposition left against medical advice (07) ==
LOC: UCEAST 16:52
DX: M79.605 Pain in left leg (principal); Z53.21 Procedure and treatment not carried out due to patient leaving prior to being seen by health care provider

== ENCOUNTER 2018-02-20 07:18 | Emergency (ER) | payer BC ==
--- OUTSIDE RECORDS SUMMARY | 2018-02-20 07:39 | XMS REPORT ---
:1990 External Reference #:[id number] Author Organization unit [facility] Address [address] [place] [address] Phone [phone] Care Team Providers Name Role Phone Carole Davenport PL[employer] Primary Care Physician Unavailable Payers Type Date Identification Numbers Payment Provider Subscriber Commercial Policy Number: [id number] Samira BC/BS [facility] Justin Saldaña PayID: [id number] [address] [address] [place] [address] Problems Description No Information Family History Date Family Member(s) Problem(s) Comments Father Healthy Mother Melanoma Mother Hypertension Mother Cancer, Thyroid Number of Children 1 First Son A&W Number of Siblings Siblings: none Paternal Grandfather COPD Paternal Grandfather Sleep Apnea Paternal Grandmother COPD Paternal Grandmother Anxiety Paternal Grandmother raynauds disease Paternal Grandmother Ovarian Cancer Maternal Grandfather due to Kidney Failure () Maternal Grandfather Diabetes, Type 2 Maternal Grandmother Heart Disease Maternal Grandmother Colitis Maternal Grandmother Osteoporosis Social History Type Date Description Comments Education Highest level of education completed is 2 years of college Marital Status Patient is Living Situation Lives with spouse and son 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 Cigarette Use Never smoked cigarettes Alcohol Drinks alcohol occasionally Smoking Patient has never smoked Drug Use Denies drug use Daily Caffeine Drinks on average 1 cup of coffee a day Exercise Type/Frequency Current Exercises regularly Seat Belt/Car Seat Always uses a seat belt Currently Active The patient is currently sexually active Contraceptive Methods Current methods of control used include Ortho-Cyclen 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 Allergies, Adverse Reactions, Alerts Date Description Reaction Status Severity Comments 02/01/2005 Penicillin active 02/01/2005 Codeine active 02/01/2005 Sulfa active 04/25/2008 Amoxicillin active 11/13/2009 Keflex active 10/14/2015 Imitrex active only the Im dose 10/14/2015 Adhesives active 09/06/2016 Cefuroxime active Fatal 09/06/2016 Montelukast Halucinate active 09/06/2016 Zoloft active 09/06/2016 Entex active 02/01/2005 Latex inactive Medications Medication Date Status Form Strength Qnty SIG Indications Ordering Provider Ortho-Cyclen () 01/20 Active Tablets 0.25-35mg 84tab Take 1 -mcg s Tablet By Sara Avelar MD Every Day as Directed Epipen 2-Inder 03/22 Active Solution 0.3mg/0.3 2unit use as Auto-Inje ML s indicated ro Avelar MD Advil 07/14 Active Tablets 200mg Q6H prn For Fever, Inflammati on, or Pain Extra Strength 12/15 Active Capsules 500mg Q6H prn Unknown For Fever or Pain Plaquenil 10/23 Active Tablets 200mg 1 po qd Klonopin 10/23 Active Tablets 0.5mg 1 po bid Valtrex Active Hydrochlorothiazide Active Tablets 12.5mg 1 po qd Epsom Salt Active Lysine Active Tablets 500mg 1 po qd Zovia 50E () 04/26 Hx Tablets 1-50mg-mc 28tab take one g s pill by Kai - mouth CNM 05/26 daily for one pack Ortho-Novum 04/20 Hx Tablets 1-50mg-mc 1Pack take for 1 g month. Valentino, - Called to 04/26 Aubrie' Flagyl 05/07 Hx Tablets 500mg 14tab Twice s Daily - 09/06 Ortho Tri-Cyclen 03/31 Hx Tablets 0.18/0.21 Every Day Unknown 5/0.25 - mg-35 mcg 09/06 Alyacen 35 03/15 Hx Tablets 1-35mg-mc 28tab take 1 g s tablet by Valentino, - mouth 09/06 every day /2016 as directed Kariva 03/12 Hx Tablets 0.15-0.02 30tab 1 daily by Conchis Kulkarni /2010 /0.01 mg s mouth Blanco, - (2 CNM 10/13 Ortho Tri-Cyclen 08/12 Hx Tablets 0.18/0.21 1pk 1 daily by Conchis Kulkarni /2010 5/0.25 mouth Blanco, - mg-3 CNM 03/12 Zoloft 06/14 Hx Tablets 50mg 60tab 1 PO qd Chayo s Jump, - ANP-C 02/05 Zoloft 04/25 Hx Tablets 25mg 60tab 1 PO qd Chayo s Jump, - ANP-C 06/14 Ortho Tri-Cyclen Lo 04/03 Hx Tablets 0.025mg;0 1PKG 1 PO qd Chayo .18 mg Jump, - ANP-C 02/05 Ovcon 35 28 Day 08/08 Hx Tablets 0.035mg;0 28tab Chayo .4 mg s Jump, - ANP-C 04/03 Loestrin 24 Fe 07/21 Hx 6 1mg/20McG 28uni Chayo ts Jump, - ANP-C 08/08 Clindesse 2% 06/15 Hx Cream 5gm 1Tube insert Chayo vaginally Jump, - @ hs times ANP-C 04/03 Seasonal 02/01 Hx Levonorge 91uni 1 po qd Chayo stal/Ethi ts Jump, - nl ANP-C 07/21 Aline 28 Day 02/01 Hx Tablets 0.03mg;3 28tab 1 po qd Chayo /2005 mg s Jump, - ANP-C 02/01 Combivent Hx Unknown Inhalation / - 05/22 Paxil Hx Unknown / - 02/05 Chewable Ney With Hx Chewtabs 15mg Unknown Iron/Childrens / - 10/13 Ortho Tri-Cyclen Lo Hx Unknown / - 03/15 Hydroxychloroquine Hx Unknown Sulfate /0000 - 09/06 Magnesium / Hx Unknown /0000 - 09/06 Clonazepam / Hx Unknown /0000 - 09/06 Ortho-Cyclen (28) Hx Unknown /0000 - 01/20 Medications Administered in Office Medication Date Status Form Strength Qnty SIG Indications Ordering Provider PT SCRN Tbco Administered Injection Phaelon Id as Non User 018 MD Yasmin Injection Rho Administered Injection Nurses (D) Immune 010 Globulin, Human, One Dose Package Injection Rho Administered Injection Nurses (D) Immune 010 Globulin, Human, One Dose Package Vital Signs Date Vital Result Comment 02/16/2018 BP Systolic 112 mmHg BP Diastolic 78 mmHg Height 60 inches 5'0" Weight 143.00 lb BMI (Body Mass Index) 27.9 kg/m2 Last Menstrual Period 1108311 1 Parity 1 01/20/2017 BP Systolic 110 mmHg BP Diastolic 70 mmHg Height 60 inches 5'0" Weight 135.00 lb BMI (Body Mass Index) 26.4 kg/m2 Last Menstrual Period [id number] 1 Parity 1 09/06/2016 BP Systolic 120 mmHg BP Diastolic 80 mmHg Height 60 inches 5'0" Weight 136.00 lb BMI (Body Mass Index) 26.6 kg/m2 Last Menstrual Period [id number] 1 Parity 1 05/07/2016 BP Systolic 114 mmHg BP Diastolic 70 mmHg Body Temperature 97.2 F Heart Rate 95 /min Respiratory Rate 18 /min Height 60 inches Weight 135.00 lb 10/14/2015 BP Systolic 120 mmHg BP Diastolic 72 mmHg Height 61 inches 5'1" Weight 146.00 lb BMI (Body Mass Index) 27.6 kg/m2 1 Parity 1 03/12/2011 BP Systolic 110 mmHg BP Diastolic 64 mmHg Height 61 inches 5'1" Weight 150.00 lb BMI (Body Mass Index) 28.3 kg/m2 Last Menstrual Period [id number] 08/24/2010 BP Systolic 120 mmHg BP Diastolic 64 mmHg Height 61 inches 5'1" Weight 151.00 lb BMI (Body Mass Index) 28.5 kg/m2 11/13/2009 BP Systolic 102 mmHg BP Diastolic 56 mmHg Height 61 inches 5'1" Weight 129.00 lb BMI (Body Mass Index) 24.4 kg/m2 0 04/25/2008 BP Systolic 120 mmHg BP Diastolic 70 mmHg Height 60 inches 5'0" Weight 115.00 lb BMI (Body Mass Index) 22.5 kg/m2 Last Menstrual Period 4289749 0 04/24/2007 BP Systolic 126 mmHg BP Diastolic 76 mmHg Height 60 inches 5'0" Weight 113.00 lb BMI (Body Mass Index) 22.1 kg/m2 Last Menstrual Period 0651340 0 02/01/2006 BP Systolic 122 mmHg BP Diastolic 68 mmHg Height 61 inches 5'1" Weight 145.00 lb BMI (Body Mass Index) 27.4 kg/m2 Last Menstrual Period 2543294 0 05/24/2005 BP Systolic 130 mmHg BP Diastolic 90 mmHg Height 61.25 inches 5'1.25" Weight 150.00 lb BMI (Body Mass Index) 28.1 kg/m2 02/01/2005 BP Systolic 126 mmHg BP Diastolic 78 mmHg Height 61 inches 5'1" Weight 161.00 lb BMI (Body Mass Index) 30.4 kg/m2 Last Menstrual Period 0 0 Results Test Date Test Result H/L Range Note Laboratory test finding 01/20/2017 Cytology SEE RESULT BELOW 1 Laboratory test finding 10/14/2015 Cytology SEE RESULT BELOW 2 Human Papilloma Virus Rna Negative Negative 3 Laboratory test 03/12/2011 Cytology <SEE 4 finding NOTE> Laboratory test 06/18/2010 Genital For GRP B NG2 5, 6 finding Strep Only Urinalysis 05/24/2010 Ua Color YELLOW Yellow W/Microscopic Appearance-Urine CLEAR Clear Specific [place]-Ur 1.011 1.010-1.030 Esterase-Urine 2+ Negative Nitrite NEGATIVE Negative Skmvwjfipvzo-Cw-UDP NEGATIVE Negative Protein-Urine NEGATIVE Negative PH-Urine 8.0 5-9 Blood-Urine NEGATIVE Negative Ketones-Urine NEGATIVE Negative Bilirubin-Ur NEGATIVE Negative Glucose-Urine NEGATIVE Negative WBC-Urine 5-10 0-5 RBC-Urine NONE SEEN 0-2 Epith Cells-Ur MODERATE None Bacteria-Urine TRACE None Urine Culture & Sensitivi 05/24/2010 Urine Culture Sensitivi SN1 7 GC/Chlamydia Dna Probe 04/23/2010 GC By Aptima TNP Negative CHL By Aptima TNP Negative Chlamydia Trachomatis Rna N 8 Laboratory test 04/23/2010 GC (N. Gonorrhoeae) N 9 finding Rna Laboratory test 04/23/2010 Antibody Screen NEGATIVE finding Laboratory test 04/11/2010 Amnisure NO MEMBRANE RUPT 10 finding <SEE NOTE> Laboratory test 12/22/2009 Thyroid Function 2.4 mIU/L 0.3-5.0 11 finding [place] Toxoplasma AB 11/17/2009 Toxoplasma Igg AB <0.91 INDEX 12 Toxoplasma Igm AB NEGATIVE 13 Interpretation (SEE NOTE) 14 Type And Screen 11/17/2009 Patient Blood Type O NEGATIVE Antibody Screen NEGATIVE Vad 11/17/2009 Vad Final NONREACTIVE Nonreactive 15 CBC With Electronic Diff 11/17/2009 White Blood Count 5.8 CUMM 4.8-10.8 Red Cell Count 3.83 CUMM Low 4.2-5.4 Hemoglobin 11.5 g/dL Low 12.0-16.0 Hematocrit 33 % Low 35-47 Mean Corpuscular Volume 86 um3 79-97 Mean Corpuscular Hemoglob 30 pg 27-31 Mean Corpuscular HGB Cone 35 g/dL 32-36 Redcell Distribution WDTH 13 % 10.5-15 Platelet Count 200 CUMM 150-450 Mean Platelet Volume 8.5 um3 7.4-10.4 Gran % 62.9 % 38-83 Lymph % 29.3 % 25-47 Mononuclear % 6.7 % 1-9 Eosinophil % 0.6 % 0-6 Basophil % 0.5 % 0-2 Abs Lymphs 1.7 1.0-4.8 Abs Mononuclear 0.4 0-0.8 Absolute Neutrophil Count 3.7 1.5-7.7 Abs Eosinophils 0 0-0.6 Abs Basophils 0 0-0.2 Prental PNL No Urine 11/17/2009 Syphilis IgG NON-REACTIVE Nonreactive 16 Hepatitis B Surface Ag Nonreactive Nonreactive Rubella Screen IMMUNE Immune Laboratory test 11/13/2009 Cytology <SEE 17 finding NOTE> Urine Culture & 11/13/2009 Urine Culture SN1 18 Sensitivi Sensitivi Laboratory test 04/25/2008 Cytology <SEE 19 finding NOTE> Laboratory test 04/24/2007 Cytology <SEE 20 finding NOTE> GC/Chlamydia Dna 06/15/2006 CHL By Aptima NEGATIVE Negative 21 Probe GC By Aptima NEGATIVE Negative 22 Laboratory test finding 02/01/2006 Cytology <SEE NOTE> 23 1 SEE RESULT BELOW Name: MIRIAM SALDAÑA Aubrey : [address]: Citlalli Avelar MD Acct: [id number] Unit: [id number] AGE: 26 Location: [facility] Re01/20/17 SEX: F Status: REG REF SPEC: [id number] ANA: 01/20/17-[address]: Citlalli Avelar MD REQ: [id number] RECD: 01/21/17-1151 STATUS: SOUT _ ORDERED: TP IMAGE ANAL COMMENTS: [id number] FINAL DIAGNOSIS Negative for Intraepithelial lesion or Malignancy A. Ectocervical/Endocervical Specimen Adequacy: Satisfactory of evaluation Transformation zone component identified Patient Information: HPV: Thin Layer Pap Test w/reflex to high risk HPV RNA testing when ASCUS Actual Specimen Date: 01/20/17 Last Menstrual Date: 01/05/17 Date of Last Specimen: 10/14/15 Signed (signature on file) RO Osorio (ASCP) 01/24 1314 This Pap test was evaluated with the assistance of the [employer]otpop Test Imaging System. Due to cytologic findings at the board winder microscope, comprehensive manual rescreening by a Plastics Bench Mechanic may be required. The Pap Smear is a screening test designed to aid in the detection of premalignant and malignant conditions of the uterine cervix. It is not a diagnostic procedure and should not be used as the sole means of detecting cervical cancer. Both false- positive and false- negative reports do occur. Depending on your risk status, a Pap smear should be obtained and evaluated every 1-3 years. END OF REPORT * ML=Testing performed at Main Lab DEPARTMENT OF PATHOLOGY, [address] [place] [address] John Long M.D. Director [facility] # [id number] 2 SEE RESULT BELOW Name: MIRIAM SALDAÑA : [address]: Citlalli Avelar MD Acct: [id number] Unit: [id number] AGE: 25 Location: [facility] Re10/14/15 SEX: F Status: REG REF SPEC: [id number] ANA: 10/14/15-[address] [facility] [address]: Citlalli Avelar MD REQ: [id number] RECD: 10/14/15 STATUS: SOUT _ ORDERED: IMAGE ANALYSIS, HPV/Thin Prep COMMENTS: [id number] FINAL DIAGNOSIS Negative for Intraepithelial lesion or Malignancy A. Ectocervical/Endocervical Specimen Adequacy: Satisfactory of evaluation Transformation zone component identified Patient Information: HPV: High risk HPV RNA testing regardless of pap results. Actual Specimen Date: 10/14/15 Date of Last Specimen: 03/12/11 Other Pertinent History: No History Given Date Time Test Result Flag (u) Normal Range 10/14/15 1141 HPV RNA Negative Negative The high-risk HPV types detected by the assay include: 16, 18, 31, 33, 35, 39, 45, 51, 52, 56, 58, 59, 66, and 68. Signed (signature on file) RO York(ASCP) 10/14 6400 This Pap test was evaluated with the assistance of the ThinPrep Test Imaging System. Due to cytologic findings at the board winder microscope, comprehensive manual rescreening by a Plastics Bench Mechanic may be required. The Pap Smear is a screening test designed to aid in the detection of premalignant and malignant conditions of the uterine cervix. It is not a diagnostic procedure and should not be used as the sole means of detecting cervical cancer. Both false- positive and false- negative reports do occur. Depending on your risk status, a Pap smear should be obtained and evaluated every 1-3 years. END OF REPORT * ML=Testing performed at Main Lab DEPARTMENT OF PATHOLOGY, [address] [place] [address] John Long M.D. Director [facility] # [id number] 3 The high-risk HPV types detected by the assay include: 16, 18, 31, 33, 35, 39, 45, 51, 52, 56, 58, 59, 66, and 68. 4 --- RUN DATE: 03/18/11 [facility] NM LIVE PAGE 1 RUN TIME: 923 Specimen Inquiry RUN USER: INTERFACE -- Name: GREGORYMIRIAM Burgos Status: REG REF Re03/12/11 Age/Sex: 20/F Unit#: [id number] Location: [facility] : [birth year] -- Specimen: [id number] SOUT Spec Date: 03/12/[address]: Conchis WASSERMAN Spec Type: CYTOLOGY Received: 03/15/11 Copies to: SOURCE ECTOCERVICAL/ENDOCERVICAL Thin Prep with Reflex HPV Test PATIENT INFORMATION ACTUAL COLLECTION DATE: 03/12/11 PREVIOUS ABNORMAL PAP SMEARS No LAST MENSTRUAL PERIOD: 02/24/11 DATE OF PRIOR SPECIMEN: 11/13/09 ADEQUACY OF SPECIMEN Satisfactory for evaluation * Transformation zone component identified * DIAGNOSIS NEGATIVE FOR INTRAEPITHELIAL LESION OR MALIGNANCY * NOTE Specimen sent to [facility] in [place], [place] on 03/15/11 by DB at 1212. Results will be reported separately in an addendum. ADDENDUM Addendum #1 Entered: 03/18/11 oRsette Human Papilloma Virus test results received with preparation and diagnosis completed by [facility], [place], [place]. Results: NEGATIVE High Risk (for types 16, 18, 31, 33, 35, 39, 45, 51, 52, 56, 58, 59, 68) This test was developed and its performance characteristics determined by Laboratory Medicine and Pathology, [facility], [place], [place]. It has not been cleared or approved by the U.S. Food and Drug Administration. -- DEPARTMENT OF PATHOLOGY, [address] [place] [address] [facility] Permit #[id number] John Long M.D. Director Penelope Manzano isreal -- -- RUN DATE: 03/18/11 [facility] NMI LIVE PAGE 2 RUN TIME: 923 Specimen Inquiry RUN USER: INTERFACE -- Name: MIRIAM SALDAÑA Status: REG REF Re03/12/11 Age/Sex: 20/F Unit#: [id number] Location: [facility]. : [birth year] -- -- CONTINUED -- ADDENDUM (Continued) Test Performed by: [facility] Dpt of lab Med and Pathology [address] [id number] Mail Sorter And Delivery: Justice Martinez III, M.D. Original hard copy report from [place] [facility] is available upon request by calling Pathology at [phone]. Addendum Review Richard PAZ([facility]) 03/18/11 -- This Pap test was evaluated with the assistance of the ThinPrep Pap Test Imaging System. The Pap Smear is a screening test designed to aid in the detection of premalign ant and malignant conditions of the uterine cervix. It is not a diagnostic procedure a nd should not be used as the sole means of detecting cervical cancer. Both false- positiv e and false-negative reports do occur. Depending on your risk status, a Pap smear dionicio uld be obtained and evaluated every one to three years. Final Interpretation electronically signed by: Richard PAZ([facility]) 03/15/11 125 8 -- -- DEPARTMENT OF PATHOLOGY, [address] [place] [address] [facility] Permit #[id number] John Long M.D. Director Suzie Bella M.D. Felt Washing Machine Tender Dir isreal -- 5 Specimen Description: vag/rec 6 FINAL: NEGATIVE FOR GROUP B STREPTOCOCCUS 7 SCANT NORMAL URETHRAL OR PERINEAL NIMCO 8 NEGATIVE FOR CHLAMYDIA TRACHOMATIS rRNA A negative result does not preclude the presence of a C.trachomatis or N.gonorrhoeae infection because results are dependent on adequate specimen collection, absence of inhibitors, and sufficient rRNA to be detected. Test results may be affected by improper specimen collection, improper specimen storage, technical error, or specimen mixup. 9 NEGATIVE FOR NEISSERIA GONORRHOEAE rRNA A negative result does not preclude the presence of a C.trachomatis or N.gonorrhoeae infection because results are dependent on adequate specimen collection, absence of inhibitors, and sufficient rRNA to be detected. Test results may be affected by improper specimen collection, improper specimen storage, technical error, or specimen mixup. 10 NO MEMBRANE RUPTURE 11 Test Performed by: [facility] Dpt of Lab Med and Pathology [address] [place] [id number] Mail Sorter And Delivery: Justice Martinez III, M.D. 12 INDEX VALUE RESULTS INTERPRETATION ------- < OR=0.90 NEGATIVE NO TOXOPLASMA IGG ANTIBODY DETECTED 0.91 - 1.09 EQUIVOCAL PRESENCE OR ABSENCE OF TOXOPLASMA IGG ANTIBODY CANNOT BE DISCERNED > OR=1.10 POSITIVE TOXOPLASMA IGG ANTIBODY DETECTED A POSITIVE RESULT INDICATES THAT THE PATIENT HAS ANTIBODY TO TOXOPLASMA IGG. IT DOES NOT DIFFERENTIATE BETWEEN AN ACTIVE OR PAST INFECTION. THE CLINICAL DIAGNOSIS MUST BE INTERPRETED IN CONJUNCTION WITH THE CLINICAL SIGNS AND SYMPTOMS OF THE PATIENT. 13 A POSITIVE IGM TITER IN SHOULD BE EVALUATED ONLY WITH SUCCESSIVE IGG TITERS. 14 NO SEROLOGIC EVIDENCE OF INFECTION WITH TOXOPLASMA GONDII. CONSIDER RETESTING IN 3 WEEKS IF ACUTE INFECTION IS SUSPECTED. 15 FINAL INTERPRETATION: No HIV antibody is detected. . This information has been disclosed to you from confidential records which are protected by [place] State law. State law prohibits you from making further disclosure of this information without the specific written consent of the person to whom it pertains, or as otherwise permitted by law. Any unauthorized further disclosure in violation of state law may result in a fine or halfway sentence or both. General authorization for the release of medical or other information is not, except in limited circumstances set forth in Part 63, Title 10, of [facility], sufficient authorization for further disclosure. Disclosure of confidential HIV information that occurs as the result of a general authorization for the release of medical or other information will be in violation of the state law and may result in a fine or a halfway sentence. . 16 Warning: A positive result is not useful for establishing a diagnosis of syphilis. In most situations, such a result may reflect a prior treated infection; a negative result can exclude a diagnosis of syphilis except for incubating or early primary disease. 17 ---- RUN DATE: 11/14/09 [facility] NMI LIVE PAGE 1 RUN TIME: 1514 Specimen Inquiry RUN USER: INTERFACE -- [id number] Status: REG REF Re11/13/09 Age/Sex: 19/F Unit#: [id number] Location: [facility]. : [birth year] -- Specimen: [id number] LORENA Spec Date: 11/13/[address]: Denise Monroe Spec Type: CYTOLOGY Received: 11/14/09-0836 Copies to: SOURCE ECTOCERVICAL/ENDOCERVICAL Thin Prep with Reflex HPV Test PATIENT INFORMATION ACTUAL COLLECTION DATE: 11/13/09 ? Yes PATIENT HISTORY: Prior and Last menstrual period Unknown ADEQUACY OF SPECIMEN Satisfactory for evaluation * Transformation zone component identified * DIAGNOSIS NEGATIVE FOR INTRAEPITHELIAL LESION OR MALIGNANCY * This Pap test was evaluated with the assistance of the ThinPrep Pap Test Imaging System. The Pap Smear is a screening test designed to aid in the detection of premalign ant and malignant conditions of the uterine cervix. It is not a diagnostic procedure a nd should not be used as the sole means of detecting cervical cancer. Both false- positiv e and false-negative reports do occur. Depending on your risk status, a Pap smear dionicio uld be obtained and evaluated every one to three years. Initial evaluation performed by Khushboo PERRY(ASCP) 11/14/09 Final Interpretation electronically signed by: Khushboo PERRY([facility]) 11/14/09 1513 -- -- DEPARTMENT OF PATHOLOGY, [address] [place] [address] [facility] Permit #[id number] Penelope Cunningham M.D. Felt Washing Machine Tender Dir isreal -- 18 SCANT NORMAL URETHRAL OR PERINEAL NIMCO 19 ---- RUN DATE: 04/26/08 [facility] NMI LIVE PAGE 1 RUN TIME: 901 Specimen Inquiry RUN USER: INTERFACE -- Name: MIRIAM CHING Status: REG REF Re04/25/08 Age/Sex: 18/F Unit#: [id number] Location: [facility] : [birth year] -- Specimen: [id number] LORENA Spec Date: 04/25/08 [facility] Dr: Chayo Wilson mp VE TEACHER Spec Type: CYTOLOGY Received: 04/26/08 Copies to: SOURCE ECTOCERVICAL/ENDOCERVICAL Thin Prep with Reflex HPV Test PATIENT INFORMATION ACTUAL COLLECTION DATE: 04/25/08 LAST MENSTRUAL PERIOD: 04/07/08 DATE OF PRIOR SPECIMEN: 04/24/07 ADEQUACY OF SPECIMEN Satisfactory for evaluation * Transformation zone component identified * DIAGNOSIS NEGATIVE FOR INTRAEPITHELIAL LESION OR MALIGNANCY * This Pap test was evaluated with the assistance of the ThinPrep Pap Test Imaging System. The Pap Smear is a screening test designed to aid in the detection of premalign ant and malignant conditions of the uterine cervix. It is not a diagnostic procedure a nd should not be used as the sole means of detecting cervical cancer. Both false- positive and false-negative reports do occur. Depending on your risk status, a Pap smear dionicio uld be obtained and evaluated every one to three years. Final Interpretation electronically signed by: Khushboo PERRY([facility]) 04/26/08 0902 -- -- DEPARTMENT OF PATHOLOGY, [address] [place] [address] [facility] Permit #[id number] Penelope Cunningham M.D. Assistant Dir ector -- 18 ---- RUN DATE: 04/26/07 [facility] NMI LIVE PAGE 1 RUN TIME: 1247 Specimen Inquiry RUN USER: INTERFACE [id number] MIRIAM CHING <REG REF 04/24> ([id number]) Chayo Kemp CNP -- Specimen: [id number] SOUT Spec Date: 04/24/[address]: Chayo Wilson [facility] Spec Type: CYTOLOGY Received: 04/25/07-1118 Copies to: SOURCE ECTOCERVICAL/ENDOCERVICAL Thin Prep with Reflex HPV Test PATIENT INFORMATION ACTUAL COLLECTION DATE: 04/24/07 DATE OF PRIOR SPECIMEN: 02/01/06 ADEQUACY OF SPECIMEN Satisfactory for evaluation * Transformation zone component identified * DIAGNOSIS NEGATIVE FOR INTRAEPITHELIAL LESION OR MALIGNANCY * This Pap test was evaluated with the assistance of the FabbeoPrep Pap Test Imaging System. The Pap Smear is a screening test designed to aid in the detection of premalign ant and malignant conditions of the uterine cervix. It is not a diagnostic procedure a nd should not be used as the sole means of detecting cervical cancer. Both false- positive and false-negative reports do occur. Depending on your risk status, a Pap smear dionicio uld be obtained and evaluated every one to three years. Final Interpretation electronically signed by: Khushboo PERRY(ASCP) 04/26/07 1246 -- -- DEPARTMENT OF PATHOLOGY, [address] [place] [address] [facility] Permit #[id number] John Long M.D. Director of [employer] -- 21 . A negative result does not preclude the presence of a C.trachomatis or N.gonorrhoeae infection because results are dependent on adequate specimen collection, absence of inhibitors, and sufficient rRNA to be detected. Test results may be affected by improper specimen collection, improper specimen storage, technical error, or specimen mixup. . 22 . A negative result does not preclude the presence of a C.trachomatis or N.gonorrhoeae infection because results are dependent on adequate specimen collection, absence of inhibitors, and sufficient rRNA to be detected. Test results may be affected by improper specimen collection, improper specimen storage, technical error, or specimen mixup. . 23 ---- RUN DATE: 02/03/06 [facility] NMI LIVE PAGE 1 RUN TIME: 1546 Specimen Inquiry RUN USER: INTERFACE [id number] MIRIAM CHING <REG REF 02/01> ([id number]) Chayo Kemp P. -- Specimen: [id number] SOUT Spec Date: 02/01/[address]: Chayo Graves VE TEACHER. Spec Type: CYTOLOGY Received: 02/02/06-1430 Copies to: SOURCE ECTOCERVICAL/ENDOCERVICAL Thin Prep with Reflex HPV Test PATIENT INFORMATION ACTUAL COLLECTION DATE: 02/01/06 PREVIOUS ABNORMAL PAP SMEARS No LAST MENSTRUAL PERIOD: 01/02/06 FIRST ONE ADEQUACY OF SPECIMEN Satisfactory for evaluation * Transformation zone component identified * DIAGNOSIS NEGATIVE FOR INTRAEPITHELIAL LESION OR MALIGNANCY * The Pap Smear is a screening test designed to aid in the detection of premalign ant and malignant conditions of the uterine cervix. It is not a diagnostic procedure an d should not be used as the sole means of detecting cervical cancer. Both false-positive and false-negative reports do occur. Depending on your risk status, a Pap smear dionicio uld be obtained and evaluated every one to three years. Signed Khushboo PERRY(ASCP) 02/03/06 -- -- DEPARTMENT OF PATHOLOGY, [address] [place] [address] [facility] Permit #[id number] Allen Best II, M.D. Director Penelope Cunninghamctor -- Procedures Date CPT Code Description Status 01/20/2017 23850 Echography Pelvic Limited Or Follow-Up Completed 01/20/2017 68011 Echography Pelvic Limited Or Follow-Up Completed 01/20/2017 84892 Echography Transvaginal Completed 01/20/2017 65195 Echography Transvaginal Completed 07/20/2010 64432 Obstetric Care Routine Completed 07/16/2010 35840 Non-Stress Test Completed 07/08/2010 93939 Echography Uterus Follow-Up Or Repeat Completed 07/08/2010 27165 Non-Stress Test Completed 05/24/2010 41456 Non-Stress Test Completed 04/23/2010 05282 Injection Intramuscular Or Subcutaneous Completed 02/27/2010 75451 Echography Uterus Complete Completed 12/22/2009 21313 OB Ultrasound First Trimester Completed 11/20/2009 10733 Injection Intramuscular Or Subcutaneous Completed Encounters Type Date Location Provider CPT E/M Dx Office Visit 02/16/2018 2:30p [facility] [place] [address] N92.0 M32.9 Office Visit 01/20/2017 2:30p [place] [address] Z01.419 Office Visit 09/06/2016 11:30a [place] [address] A60.09 Office Visit 10/14/2015 10:30a [place] [address] Z01.419 Office Visit 03/12/2011 1:00p [facility] Conchis Simeon, [facility] [address]30 V72.31 V76.19 V76.2 V25.41 Office Visit 05/24/2010 1:20p [place] [address] V28.9 Office Visit 04/11/2010 11:58p Delivery Ashely Garay [facility] [address] 644.13 Office Visit 04/24/2007 1:40p [facility] Chayo Graves, ANP[facility]C 56072 V72.31 V76.2 V25.49 V78.0 V77.1 Office Visit 06/15/2006 1:00p [facility] Chayo Graves, ANP-C 26003 623.8 Office Visit 02/01/2006 9:20a [facility] Chayo Graves, ANP-C 35942 V72.31 V77.1 V78.0 V76.2 Office Visit 05/24/2005 1:00p [facility] Chayo Graves, ANP-C 57864 789.30 Office Visit 02/01/2005 2:00p [facility] Chayo Graves, ANP-C 53127 V25.9 Office Visit 01/31/2004 9:00a [facility] Chayo Graves, ANP-C 37516 V72.3 V78.0 Office Visit 01/30/2003 2:30p [facility] Chayo Graves, ANP-C 37843 V72.3 V78.0 V77.1 Plan of Care Future Appointment(s):02/20/2018 8:30 am - Ultrasounds at [facility]2017 8:00 am - Citlalli Avelar MD at [facility]09/06/2016 - Citlalli Avelar , MDA60.09 Herpesviral infection of other urogenital tract
[2018-02-20 07:42] VITALS: BP 115/57
--- NOTE | 2018-02-20 08:00 | ED ---
Throat Pain/Nasal Congestion - HPI Summary HPI Summary: 27 yr old female with the complaint of sinus congestion, post nasal drip, sinus pain for about a week. She states she gets sinus infection, and that doxycycline is the only antibiotic she can take for it due to allergies. No fever or chills. No other complaints. - History of Current Complaint Chief Complaint: UCGeneralIllness Time Seen by Provider: 02/20/18 07:54 - Allergies/Home Medications Allergies/Adverse Reactions: Allergies Allergy/AdvReac Type Severity Reaction Status Date / Time azithromycin Allergy Rash Verified 02/20/18 07:43 cefuroxime Allergy Anaphylatic Verified 02/20/18 07:43 Shock guaifenesin Allergy Palpitation Verified 02/20/18 07:43 s ketorolac Allergy Vomiting Verified 02/20/18 07:43 methylparaben Allergy Unknown Verified 02/20/18 07:43 Reaction Details Penicillins Allergy Hives Verified 02/20/18 07:43 phenylephrine Allergy Unknown Verified 02/20/18 07:43 Reaction Details shellfish derived Allergy ITCHY AND Verified 02/20/18 07:43 ERYTHEMIC EARS Sulfa (Sulfonamide Allergy Hives/Diff. Verified 02/20/18 07:43 Antibiotics) Breathing/I tching sumatriptan Allergy Hives Verified 02/20/18 07:43 codeine AdvReac See Comment Verified 02/20/18 07:43 montelukast AdvReac Hallucinati Verified 02/20/18 07:43 ons grape flavoring Allergy Facial Uncoded 02/20/18 07:43 Swelling, Difficulty Breathing, and Wheezing PROPYLPARABEN Allergy Unknown Uncoded 02/20/18 07:43 Reaction Details PMH/Surg Hx/FS Hx/Imm Hx Endocrine/Hematology History: Denies: Hx Anticoagulant Therapy, Hx Diabetes, Hx Thyroid Disease Cardiovascular History: Reports: Other Cardiovascular Problems/Disorders - LUPUS Denies: Hx Congestive Heart Failure, Hx Deep Vein Thrombosis, Hx Hypertension , Hx Myocardial Infarction, Hx Pacemaker/ICD Respiratory History: Denies: Hx Asthma, Hx Chronic Obstructive Pulmonary Disease (COPD), Hx Lung Cancer, Hx Pneumonia, Hx Pulmonary Embolism GI History: Denies: Hx Gall Bladder Disease, Hx Gastrointestinal Bleed, Hx Ulcer, Hx Urosepsis History: Denies: Hx Kidney Stones, Hx Renal Disease Neurological History: Reports: Hx Headaches, Hx Migraine - She uses Imetrix- like pill for migraines. Denies: Hx Dementia, Hx Seizures, Hx Transient Ischemic Attacks (TIA) Psychiatric History: Reports: Hx Anxiety Denies: Hx Depression, Hx Schizophrenia, Hx Bipolar Disorder, Hx Substance Abuse - Surgical History Surgery Procedure, Year, and Place: WISDOM TEETH EXTRACTION. 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 Denies: Hx Clostridium Difficile, Hx Hepatitis, Hx Human Immunodeficiency Virus (HIV), Hx Shingles, Hx Tuberculosis, Traveled Outside the [place] in Last 30 Days - Family History Known Family History: Positive: Cardiac Disease, Hypertension - Social History Occupation: Employed Full-time Alcohol Use: Rare Substance Use Type: Reports: None Smoking Status (MU): Never Smoked Tobacco Have You Smoked in the Last Year: No Review of Systems Constitutional: Negative Positive: Nasal Discharge, Other - sinus pain All Other Systems Reviewed And Are Negative: Yes Physical Exam Triage Information Reviewed: Yes Vital Signs On Initial Exam: Initial Vitals Temp Pulse Resp BP Pulse Ox 98.7 F 100 18 115/57 100 02/20/18 07:37 02/20/18 07:37 02/20/18 07:37 02/20/18 07:37 02/20/18 07:37 Vital Signs Reviewed: Yes Appearance: Positive: Well-Appearing, No Pain Distress Skin: Positive: Warm Head/Face: Positive: Normal Head/Face Inspection Eyes: Positive: EOMI ENT: Positive: Pharynx normal, TMs normal, Sinus tenderness, Uvula midline. Negative: Muffled voice, Hoarse voice Neck: Positive: Nontender Respiratory/Lung Sounds: Positive: Clear to Auscultation, Breath Sounds Present Cardiovascular: Positive: RRR. Negative: Murmur Abdomen Description: Positive: Nontender Musculoskeletal: Positive: Strength/ROM Intact Neurological: Positive: Sensory/Motor Intact, Alert, Oriented to Person Place, Time, CN Intact II-III Psychiatric: Positive: Normal Diagnostics - Vital Signs Vital Signs Temp Pulse Resp BP Pulse Ox 02/20/18 07:37 98.7 F 100 18 115/57 100 - Laboratory Lab Statement: Any lab studies that have been ordered have been reviewed, and results considered in the medical decision making process. EENT Course/Dx - Course Course Of Treatment: 27 yr old with sinusitis. Rx doxy. DC home. - Diagnoses Provider Diagnoses: Sinusitis Discharge - Sign-Out/Discharge Documenting (check all that apply): Patient Departure All imaging exams completed and their final reports reviewed: No Studies - Discharge Plan Condition: Good Disposition: HOME Prescriptions: DOXYcycline CAP(*) [DOXYcycline 100MG CAP(*)] 100 mg PO BID #20 cap Patient Education Materials: Sinusitis (ED) Referrals: Paxton Mansfield MD [Primary Care Provider] - 2 Days - Billing Disposition and Condition Condition: GOOD Disposition: Home
== END 2018-02-20 08:04 | disposition home or self-care (01) ==
LOC: UCCORT 07:18
CPT/HCPCS: 99212; G0463

== ENCOUNTER 2018-05-14 15:10 | Emergency (ER) | payer BC ==
--- NOTE | 2018-05-14 15:26 | UC ---
Skin Complaint HPI - HPI Summary HPI Summary: Patient is 28year old woman, who present today to the urgent care with some redness and pain at the site of her laparoscopy incision . Planus slightly inferior to her laparoscopic scar wound at the umbilicus She had D&C, ablation and laparoscopic tubal ligation [address] Avelar. Her postop appointment is on 05/16/18. She called Dr. Avelar's office and was suggested to come here for evaluation Reports that she noticed the pain after she lifted the groceries. She denies any vaginal bleeding or discharge. No drainage from the site She also reports some sore throat that she has noticed today. She denies any fevers or chills or any cough. Denies chest pain or shortness of breath. Denies any nausea or vomiting , diarrhea or constipation. - History of Current Complaint Time Seen by Provider: 05/14/18 15:19 Stated Complaint: skin irritation/possible infection Hx Obtained From: Patient Hx Last Menstrual Period: current ?: No - Allergy/Home Medications Allergies/Adverse Reactions: Allergies Allergy/AdvReac Type Severity Reaction Status Date / Time azithromycin Allergy Severe Rash Verified 04/03/18 09:43 cefuroxime Allergy Severe Anaphylatic Verified 04/03/18 09:43 Shock ketorolac Allergy Severe Vomiting Verified 04/03/18 09:43 Penicillins Allergy Severe Hives Verified 04/03/18 09:43 shellfish derived Allergy Severe ITCHY AND Verified 04/03/18 09:43 ERYTHEMIC EARS Sulfa (Sulfonamide Allergy Severe Hives/Diff. Verified 04/03/18 09:43 Antibiotics) Breathing/I tching sumatriptan Allergy Severe Hives Verified 04/03/18 09:43 methylparaben Allergy Unknown Verified 04/03/18 09:43 Reaction Details mushroom Allergy Hives Verified 04/20/18 09:40 phenylephrine Allergy Unknown Verified 04/03/18 09:43 Reaction Details codeine AdvReac Severe See Comment Verified 04/03/18 09:43 montelukast AdvReac Severe Hallucinati Verified 04/03/18 09:43 ons guaifenesin AdvReac Intermediate Palpitation Verified 04/03/18 09:43 s sertraline [From Zoloft] AdvReac See Comment Verified 04/03/18 09:46 grape flavoring Allergy Severe Facial Uncoded 04/03/18 09:43 Swelling, Difficulty Breathing, and Wheezing Purple dye Allergy Severe Facial Uncoded 04/03/18 09:44 swelling, difficulty breathing , wheezing PROPYLPARABEN Allergy Unknown Uncoded 04/03/18 09:43 Reaction Details Entex AdvReac Tachycardia Uncoded 04/03/18 09:46 Home Medications: Home Medications Valacyclovir HCl [Valtrex] 1,000 mg PO DAILY 05/14/18 [History Confirmed ] PMH/Surg Hx/FS Hx/Imm Hx - Additional Past Medical History Additional PMH: Lupus , on plaquenil Previously Healthy: Yes Other History Of: Negative For: HIV, Hepatitis B, Hepatitis C, Anticoagulant Therapy - Surgical History Surgical History: Yes Surgery Procedure, Year, and Place: WISDOM TEETH EXTRACTION. EAR TUBES. 4th Degree laceration with childbirth - Family History Known Family History: Positive: Cardiac Disease, Hypertension - Social History Alcohol Use: Rare Substance Use Type: None Smoking Status (MU): Never Smoked Tobacco Have You Smoked in the Last Year: No - Immunization History Most Recent Influenza Vaccination: 03/10/16 Most Recent Tetanus Shot: 2 yrs ago Review of Systems All Other Systems Reviewed And Are Negative: Yes Constitutional: Positive: Negative Skin: Positive: Other - Area of redness at the site of the umbilicus laparoscopic portal Eyes: Positive: Negative ENT: Positive: Negative, Sore Throat Respiratory: Positive: Negative Cardiovascular: Positive: Negative Gastrointestinal: Positive: Abdominal Pain - inferior to umbilicus Genitourinary: Positive: Negative Motor: Positive: Negative Neurovascular: Positive: Negative Musculoskeletal: Positive: Negative Neurological: Positive: Negative Psychological: Positive: Negative Is Patient Immunocompromised?: No Physical Exam - Summary Physical Exam Summary: Physical Exam: Const: Appears well. No signs of apparent distress present. Alert and oriented x 3. Musculo: Walks with a normal gait. Head/Face: Atraumatic, normocephalic on inspection. Eyes: EOMI and PERRLA in both eyes. Conjunctivae clear. No discharge noted ENT: Hearing normal, TM normal appearing bilaterally . Pharyngeal erythema noted, no exudates No lymphadenopathy Respiratory: Respirations are unlabored. Lungs clear to auscultation bilaterally, no wheezing , rhonchi or rales noted . CVS: Regular rate and Rhythm, S1S2 normal , no murmurs identified. Extremities: Peripheral circulation is grossly normal. Pulses 2+ Abdomen : Soft, there is mild tenderness noted inferior to umblicus, nondistended , Bowel sounds present . No guarding , rebound tenderness or rigidity noted. Skin: At the site of laparoscopic portal wound at umblicus , there is a small tear with redness, no signs of infection or drainage . No bleeding Neuro: Cranial nerves II to XII intact, motor and sensory intact. DTR Intact bilaterally. Mood is normal. Affect is normal. Triage Information Reviewed: Yes Vital Signs Reviewed: Yes Images Front/Back of Body, Lg ([place]): 1 - very small tear at umblicus Course/Dx - Course Course Of Treatment: During the visit today, we obtained a rapid strep test which was negative. We discussed the findings and further plan. Likely early viral pharyngitits, her son has URI as well. She will keep her follow up appointment iwth Dr Avelar. Wound covered with dressing and advised her to keep it dry. We discussed red flags with any worsening of abdominal pain , nausea , vomiting or fever, she should immediately return to Urgent care / ER. Patient expressed understanding . - Diagnoses Provider Diagnosis: Skin tear, Viral URI Discharge - Sign-Out/Discharge Documenting (check all that apply): Patient Departure All imaging exams completed and their final reports reviewed: No Studies - Discharge Plan Condition: Stable Disposition: HOME Patient Education Materials: Acute Wound Care (ED), Viral Syndrome (ED) Referrals: Paxton Mansfield MD [Primary Care Provider] - 1 Week Additional Instructions: Wound - keep it covered with dressing and keep it dry Monitor for any worsening of abdominal pain , nausea , vomiting or fever- immediately return to Urgent care / E Follow up with for your post op visit as scheduled in 2 days - Billing Disposition and Condition Condition: STABLE Disposition: Home
[2018-05-14 15:28] VITALS: BP 119/65
== END 2018-05-14 16:17 | disposition home or self-care (01) ==
LOC: UCCORT 15:10
DX: S30.92XA Unspecified superficial injury of abdominal wall, initial encounter (principal); X58.XXXA Exposure to other specified factors, initial encounter; Y93.89 Activity, other specified; Y92.9 Unspecified place or not applicable; J06.9 Acute upper respiratory infection, unspecified; Z88.0 Allergy status to penicillin; Z88.1 Allergy status to other antibiotic agents; Z88.6 Allergy status to analgesic agent; Z88.8 Allergy status to other drugs, medicaments and biological substances; M32.9 Systemic lupus erythematosus, unspecified
CPT/HCPCS: 87651; 99211; G0463

== ENCOUNTER 2018-05-15 22:05 | Emergency (ER) | payer BC ==
[2018-05-15 23:37] LABS: ABS Basophils 0.1 10^3/ul (0-0.2); ABS Eosinophils 0.2 10^3/ul (0-0.6); ABS Lymphocytes 3.1 10^3/ul (1.0-4.8); ABS Monocytes 0.6 10^3/ul (0-0.8); ABS Nucleated RBC 0 10^3/ul; Eosinophil % 2.7 %; Hematocrit 41 % (35-47); Hemoglobin 13.9 g/dl (12.0-16.0); Lymphocyte % 44.7 %; Mean Corpuscular HGB Conc 34 g/dl (31-36); Mean Corpuscular Hemoglobin 29 pg (27-31); Mean Corpuscular Volume 87 fL (80-97); Mean Platelet Volume 8.1 fL (7.4-10.4); Nucleated Red Blood Cells % 0.2; Platelet Count 222 10^3/ul (150-450); Red Blood Count 4.73 10^6/ul (4.00-5.40); Red Cell Distribution Width 13 % (10.5-15); White Blood Count 6.9 10^3/ul (3.5-10.8)
[2018-05-15 23:58] LABS: EGFR Non-African American 115.2 (>60)
[2018-05-16] MEDS ORDERED: DOXYcycline CAP(*) 100 MG PO ONE (00:55)
--- NOTE | 2018-05-16 00:57 | ED ---
GI/ HPI - HPI Summary HPI Summary: 28-year-old female presents with drainage from her belly button for the past 2 days. She states that it started with some bleeding and now is having some pus like drainage. She has some redness around the area. No fevers. No abdominal pain. No nausea or vomiting. She also been having abnormal vaginal discharge. She is not itchy. No pelvic pain. She had a D&C and ablation done 3 weeks ago. She denies any fevers. She denies any urinary symptoms. Has follow-up tomorrow with OB. - History of Current Complaint Chief Complaint: EDOBProblems Time Seen by Provider: 05/16/18 00:35 Stated Complaint: POSS INFECTION Hx Last Menstrual Period: current Pain Intensity: 4 - Allergy/Home Medications Allergies/Adverse Reactions: Allergies Allergy/AdvReac Type Severity Reaction Status Date / Time azithromycin Allergy Severe Rash Verified 05/15/18 22:11 cefuroxime Allergy Severe Anaphylatic Verified 05/15/18 22:11 Shock ketorolac Allergy Severe Vomiting Verified 05/15/18 22:11 Penicillins Allergy Severe Hives Verified 05/15/18 22:11 shellfish derived Allergy Severe ITCHY AND Verified 05/15/18 22:11 ERYTHEMIC EARS Sulfa (Sulfonamide Allergy Severe Hives/Diff. Verified 05/15/18 22:11 Antibiotics) Breathing/I tching sumatriptan Allergy Severe Hives Verified 05/15/18 22:11 methylparaben Allergy Unknown Verified 05/15/18 22:11 Reaction Details mushroom Allergy Hives Verified 05/15/18 22:11 phenylephrine Allergy Unknown Verified 05/15/18 22:11 Reaction Details povidone-iodine Allergy Hives Verified 05/15/18 22:11 [From Betadine] soap [From Betadine] Allergy Hives Verified 05/15/18 22:11 codeine AdvReac Severe See Comment Verified 05/15/18 22:11 montelukast AdvReac Severe Hallucinati Verified 05/15/18 22:11 ons guaifenesin AdvReac Intermediate Palpitation Verified 05/15/18 22:11 s sertraline [From Zoloft] AdvReac See Comment Verified 05/15/18 22:11 grape flavoring Allergy Severe Facial Uncoded 05/15/18 22:11 Swelling, Difficulty Breathing, and Wheezing Purple dye Allergy Severe Facial Uncoded 05/15/18 22:11 swelling, difficulty breathing , wheezing PROPYLPARABEN Allergy Unknown Uncoded 05/15/18 22:11 Reaction Details Entex AdvReac Tachycardia Uncoded 05/15/18 22:11 PMH/Surg Hx/FS Hx/Imm Hx Endocrine/Hematology History: Denies: Hx Anticoagulant Therapy, Hx Diabetes, Hx Thyroid Disease Cardiovascular History: Reports: Other Cardiovascular Problems/Disorders - LUPUS /Raynaud's Phenomenon Denies: Hx Congestive Heart Failure, Hx Deep Vein Thrombosis, Hx Hypertension , Hx Myocardial Infarction, Hx Pacemaker/ICD Respiratory History: Reports: Other Respiratory Problems/Disorders - History of pneumonia Denies: Hx Asthma, Hx Chronic Obstructive Pulmonary Disease (COPD), Hx Lung Cancer, Hx Pneumonia, Hx Pulmonary Embolism GI History: Denies: Hx Gall Bladder Disease, Hx Gastrointestinal Bleed, Hx Ulcer, Hx Urosepsis, Other GI Disorders History: Reports: Hx Kidney Infection - History of, Kidney and UTI, years ago , Other Problems/Disorders - Frequent urination, abnormal uterine and vaginal bleeding Denies: Hx Kidney Stones, Hx Renal Disease Musculoskeletal History: Reports: Other Musculoskeletal History - LUPUS-causes achey joints Denies: Hx Arthritis Sensory History: Reports: Hx Contacts or Glasses - Glasses and contacts Denies: Hx Hearing Aid Opthamlomology History: Reports: Hx Contacts or Glasses - Glasses and contacts Neurological History: Reports: Hx Headaches, Hx Migraine - She uses Imetrix- oral for migraines. Denies: Hx Dementia, Hx Seizures, Hx Transient Ischemic Attacks (TIA), Other Neuro Impairments/Disorders Psychiatric History: Reports: Hx Anxiety - Would like to take her morning anxiety med day of surgery Denies: Hx Depression, Hx Schizophrenia, Hx Bipolar Disorder, Hx Substance Abuse - Surgical History Surgery Procedure, Year, and Place: WISDOM TEETH EXTRACTION. EAR TUBES. 4th Degree laceration with childbirth Hx Anesthesia Reactions: No Infectious Disease History: No Infectious Disease History: Reports: History Other Infectious Disease - HSV1 Denies: Hx Clostridium Difficile, Hx Hepatitis, Hx Human Immunodeficiency Virus (HIV), Hx Shingles, Hx Tuberculosis, Traveled Outside the [place] in Last 30 Days - Family History Known Family History: Positive: Cardiac Disease, Hypertension - Social History Alcohol Use: Rare Substance Use Type: Reports: None Smoking Status (MU): Never Smoked Tobacco Have You Smoked in the Last Year: No Review of Systems Negative: Fever Negative: Chest Pain Negative: Shortness Of Breath Positive: Other - vaginal discharge Positive: Rash All Other Systems Reviewed And Are Negative: Yes Physical Exam Triage Information Reviewed: Yes Vital Signs On Initial Exam: Initial Vitals Temp Pulse Resp BP Pulse Ox 98.7 F 94 16 121/66 100 05/15/18 22:07 05/15/18 22:07 05/15/18 22:07 05/15/18 22:07 05/15/18 22:07 Vital Signs Reviewed: Yes Appearance: Positive: Well-Appearing Skin: Positive: Warm, Dry, Other - belly button incision slight widening of incision with pus like drainage and bleeding, minimial surrounding erythema Head/Face: Positive: Normal Head/Face Inspection Eyes: Positive: Normal, Conjunctiva Clear ENT: Positive: Pharynx normal Respiratory/Lung Sounds: Positive: Clear to Auscultation, Breath Sounds Present Cardiovascular: Positive: Normal, RRR Abdomen Description: Positive: Nontender, Soft Bowel Sounds: Positive: Present Pelvic Exam: Positive: External Exam Normal, Bimanual Exam Normal, No Cerv. Motion Tender, Discharge - vaginal Neurological: Positive: Normal Psychiatric: Positive: Normal Diagnostics - Vital Signs Vital Signs Temp Pulse Resp BP Pulse Ox 05/15/18 22:07 98.7 F 94 16 121/66 100 - Laboratory Lab Results: Lab Results 05/15/18 05/15/18 Range/Units 23:26 23:26 WBC 6.9 (3.5-10.8) 10^3/ul RBC 4.73 (4.00-5.40) 10^6/ul Hgb 13.9 (12.0-16.0) g/dl Hct 41 (35-47) % MCV 87 (80-97) fL MCH 29 (27-31) pg MCHC 34 (31-36) g/dl RDW 13 (10.5-15) % Plt Count 222 (150-450) 10^3/ul MPV 8.1 (7.4-10.4) fL Neut % (Auto) 42.6 % Lymph % (Auto) 44.7 % [place] % (Auto) 9.2 % Eos % (Auto) 2.7 % Baso % (Auto) 0.8 % Absolute Neuts (auto) 3.0 (1.5-7.7) 10^3/ul Absolute Lymphs (auto) 3.1 (1.0-4.8) 10^3/ul Absolute Monos (auto) 0.6 (0-0.8) 10^3/ul Absolute Eos (auto) 0.2 (0-0.6) 10^3/ul Absolute Basos (auto) 0.1 (0-0.2) 10^3/ul Absolute Nucleated RBC 0 10^3/ul Nucleated RBC % 0.2 Sodium 137 (135-145) mmol/L Potassium 3.8 (3.5-5.0) mmol/L Chloride 105 (101-111) mmol/L Carbon Dioxide 25 (22-32) mmol/L Anion Gap 7 (2-11) mmol/L BUN 19 (6-24) mg/dL Creatinine 0.61 (0.51-0.95) mg/dL Est GFR ( Amer) 139.3 (>60) Est GFR (Non-Af Amer) 115.2 (>60) BUN/Creatinine Ratio 31.1 H (8-20) Glucose 95 (70-100) mg/dL Calcium 9.0 (8.6-10.3) mg/dL Total Bilirubin 0.40 (0.2-1.0) mg/dL AST 23 (13-39) U/L ALT 19 (7-52) U/L Alkaline Phosphatase 70 (34-104) U/L C-Reactive Protein 2.73 (<8.01) mg/L Total Protein 6.9 (6.4-8.9) g/dL Albumin 4.3 (3.2-5.2) g/dL Globulin 2.6 (2-4) g/dL Albumin/Globulin Ratio 1.7 (1-3) Lipase 26 (11.0-82.0) U/L Beta HCG, Quant < 0.60 mIU/mL Result Diagrams: 05/15/18 23:26 05/15/18 23:26 Lab Statement: Any lab studies that have been ordered have been reviewed, and results considered in the medical decision making process. GIGU Course/Dx - Course Course Of Treatment: 28-year-old female presents with drainage from her belly button for the past 2 days. She states that it started with some bleeding and now is having some pus like drainage. She has some redness around the area. No fevers. No abdominal pain. No nausea or vomiting. She also been having abnormal vaginal discharge. She is not itchy. No pelvic pain. She had a D&C and ablation done 3 weeks ago. She denies any fevers. She denies any urinary symptoms. Has follow-up tomorrow with OB. On exam has a small incision on belly button with minimal erythema and some pus like drainage from the wound. Appears to starting dehiscence of the area. On nontender abdomen. On pelvic exam has whitish discharge present. No cervical motion tenderness. Will place on doxycycline for dehiscent wound on belly button. Will wait for cultures for her vaginal discharge. Patient understands agrees with plan. - Diagnoses Differential Diagnoses - Female: STD, Other - cellulitis, abscess Provider Diagnoses: Wound dehiscence, Vaginal discharge Discharge - Sign-Out/Discharge Documenting (check all that apply): Patient Departure - Discharge Plan Condition: Good Disposition: HOME Prescriptions: DOXYcycline CAP(*) [DOXYcycline 100MG CAP(*)] 100 mg PO BID #19 cap Patient Education Materials: Wound Dehiscence (ED) Referrals: Paxton Mansfield MD [Primary Care Provider] - Additional Instructions: Take doxycycline twice a day for 10 days keep area clean with soap and water Follow up with ob within 3 days Return to ED if develop fever, area of redness spreads, or any new or worsening symptoms - Billing Disposition and Condition Condition: GOOD Disposition: Home
[2018-05-16 01:19] VITALS: BP 117/65
--- NOTE | 2018-05-16 06:23 | PN ---
Progress Note - Progress Note Date of Service: 05/15/18 Note: Wound culture obtained from incision near umbilicus. Purulent drainage. Patient placed on Doxycycline. Patient already has follow up to OB tomorrow MRSA/S. Aureus both negative. Patient will continue to take doxycycline for her symptoms
--- NOTE | 2018-05-20 06:11 | ED ---
Progress - Progress Note Progress Note: Patient's wound culture is negative for MRSA and staph aureus however preliminary findings are positive for streptococcus Anginosus (normal katlyn of GI/ tracts) and Finegoldia magna (normal katlyn of GI tract). Wound was dx'd as dehiscence of a laparascopic site which was performed in the umbilicus for tubal ligation [address] Avelar. Pt's labs and vital signs were WNL while here. She had been seen the day before as well in UC w/o drainage of wound per note. [place] almost immediate pain in the area after lifting groceries - may have torn sutures. Patient was started on doxycycline in ED and advised to follow-up with OB as scheduled on 05/16. Final sensitivities pending. Spoke w/ pt who reports she went for f/u w/ OB. Navel does not hurt anymore, not getting worse. D/c is clear drainage. Denies redness, fever, nausea, etc. She was told she may be having an allergic rxn to her sutures as she has multiple allergies. Was told to continue doxycycline but did not review final cx findings as they were not available yet. Pt agrees w/ plan and will call OB to update findings and inquire about need for change/further tx. Explained I would defer to OB as she is a post surgical pt w/ multiple anbx allergies. Reported and spelled names of organisms to pt who confirms recording them. Pt agrees w/ plan. She is also aware of danger s/sx of when to return to ED. Course/Dx - Course Course Of Treatment: 28-year-old female presents with drainage from her belly button for the past 2 days. She states that it started with some bleeding and now is having some pus like drainage. She has some redness around the area. No fevers. No abdominal pain. No nausea or vomiting. She also been having abnormal vaginal discharge. She is not itchy. No pelvic pain. She had a D&C and ablation done 3 weeks ago. She denies any fevers. She denies any urinary symptoms. Has follow-up tomorrow with OB. On exam has a small incision on belly button with minimal erythema and some pus like drainage from the wound. Appears to starting dehiscence of the area. On nontender abdomen. On pelvic exam has whitish discharge present. No cervical motion tenderness. Will place on doxycycline for dehiscent wound on belly button. Will wait for cultures for her vaginal discharge. Patient understands agrees with plan. - Diagnoses Provider Diagnoses: Wound dehiscence, Vaginal discharge Discharge - Sign-Out/Discharge Documenting (check all that apply): Post-Discharge Follow Up - Discharge Plan Condition: Good Disposition: HOME Prescriptions: DOXYcycline CAP(*) [DOXYcycline 100MG CAP(*)] 100 mg PO BID #19 cap Patient Education Materials: Wound Dehiscence (ED) Referrals: Paxton Mansfield MD [Primary Care Provider] - Additional Instructions: Take doxycycline twice a day for 10 days keep area clean with soap and water Follow up with ob within 3 days Return to ED if develop fever, area of redness spreads, or any new or worsening symptoms - Billing Disposition and Condition Condition: GOOD Disposition: Home
== END 2018-05-16 01:18 | disposition home or self-care (01) ==
LOC: ED 22:05
DX: T81.31XA Disruption of external operation (surgical) wound, not elsewhere classified, initial encounter (principal); N89.8 Other specified noninflammatory disorders of vagina; B95.4 Other streptococcus as the cause of diseases classified elsewhere; Z88.2 Allergy status to sulfonamides; Z88.8 Allergy status to other drugs, medicaments and biological substances; Z88.1 Allergy status to other antibiotic agents; Z88.5 Allergy status to narcotic agent; Z88.0 Allergy status to penicillin; Z91.013 Allergy to seafood
CPT/HCPCS: 36415; 80053; 83690; 84702; 85025; 86140; 87070; 87076; 87077; 87181; 87186; 87205; 87480; 87491; 87510; 87591; 87640; 87641; 87661; 99283; A9270-GY

== ENCOUNTER 2018-11-18 08:32 | Emergency (ER) | payer BC ==
[2018-11-18 08:41] VITALS: BP 123/67
--- NOTE | 2018-11-18 08:43 | UC ---
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 teeth hurt, cough with brown mucous. pt states she cant hear or tast anything. Pleasant 28 yo female c/o progressive sinus pain and congestion x approx 9 days. No fever / chills. No rash. Mild cough. + sore throat, sx started as sore throat. No rash. No vis / aud issues, othere thna congestionl, reported. No / GI issue. Yesterday blew nose and noted dark yellow, bloody mucus, prompting visit today to [facility]. - History of Current Complaint Chief Complaint: UCRespiratory Stated Complaint: SINIS ISSUES Time Seen by Provider: 11/18/18 08:42 Hx Obtained From: Patient Hx Last Menstrual Period: tubal ligation Pain Intensity: 0 - Allergy/Home Medications Allergies/Adverse Reactions: Allergies Allergy/AdvReac Type Severity Reaction Status Date / Time azithromycin Allergy Severe Rash Verified 11/18/18 08:41 cefuroxime Allergy Severe Anaphylatic Verified 11/18/18 08:41 Shock ketorolac Allergy Severe Vomiting Verified 11/18/18 08:41 Penicillins Allergy Severe Hives Verified 11/18/18 08:41 shellfish derived Allergy Severe ITCHY AND Verified 11/18/18 08:41 ERYTHEMIC EARS Sulfa (Sulfonamide Allergy Severe Hives/Diff. Verified 11/18/18 08:41 Antibiotics) Breathing/I tching sumatriptan Allergy Severe Hives Verified 11/18/18 08:41 methylparaben Allergy Unknown Verified 11/18/18 08:41 Reaction Details mushroom Allergy Hives Verified 11/18/18 08:41 phenylephrine Allergy Unknown Verified 11/18/18 08:41 Reaction Details povidone-iodine Allergy Hives Verified 11/18/18 08:41 [From Betadine] soap [From Betadine] Allergy Hives Verified 11/18/18 08:41 codeine AdvReac Severe See Comment Verified 11/18/18 08:41 montelukast AdvReac Severe Hallucinati Verified 11/18/18 08:41 ons guaifenesin AdvReac Intermediate Palpitation Verified 11/18/18 08:41 s sertraline [From Zoloft] AdvReac See Comment Verified 11/18/18 08:41 grape flavoring Allergy Severe Facial Uncoded 11/18/18 08:41 Swelling, Difficulty Breathing, and Wheezing Purple dye Allergy Severe Facial Uncoded 11/18/18 08:41 swelling, difficulty breathing , wheezing PROPYLPARABEN Allergy Unknown Uncoded 11/18/18 08:41 Reaction Details Entex AdvReac Tachycardia Uncoded 11/18/18 08:41 Home Medications: Home Medications Cholecalciferol (Vitamin D3) [Vitamin D3] 1,000 unit PO 11/18/18 [History] Cyanocobalamin (Vitamin B-12) [Vitamin B-12] 1,000 mcg PO 11/18/18 [History] PMH/Surg Hx/FS Hx/Imm Hx Previously Healthy: Yes Other History Of: Negative For: HIV, Hepatitis B, Hepatitis C, Anticoagulant Therapy - Surgical History Surgical History: Yes Surgery Procedure, Year, and Place: WISDOM TEETH EXTRACTION. EAR TUBES. 4th Degree laceration with childbirth - Family History Known Family History: Positive: Cardiac Disease, Hypertension - Social History Alcohol Use: Rare Substance Use Type: None Smoking Status (MU): Never Smoked Tobacco Have You Smoked in the Last Year: No - Immunization History Most Recent Influenza Vaccination: 03/10/16 Most Recent Tetanus Shot: 2 yrs ago Review of Systems All Other Systems Reviewed And Are Negative: Yes Constitutional: Positive: Negative Skin: Positive: Negative Eyes: Positive: Other - see hpi ENT: Positive: Other - see hpi Respiratory: Positive: Other - see hpi Cardiovascular: Positive: Other - see hpi Gastrointestinal: Positive: Other - see hpi Genitourinary: Positive: Other - see hpi Motor: Positive: Negative Neurovascular: Positive: Negative Musculoskeletal: Positive: Negative Neurological: Positive: Negative, Headache - + sinus h/a Psychological: Positive: Negative Is Patient Immunocompromised?: No Physical Exam Triage Information Reviewed: Yes Appearance: Well-Appearing, Well-Nourished Vital Signs: Initial Vital Signs Temp 97.7 F 11/18/18 08:38 Pulse 99 11/18/18 08:38 Resp 18 11/18/18 08:38 BP 123/67 11/18/18 08:38 Pulse Ox 100 11/18/18 08:38 Vital Signs Reviewed: Yes Eye Exam: Normal ENT Exam: Other ENT: Positive: Pharyngeal erythema, Nasal congestion, Nasal drainage, TM dull - dull TM au, Other - + tender bilat max sinus and ethmoid region. Some frontal sinus tenderness. Neck exam: Normal Neck: Positive: Supple, Nontender, No Lymphadenopathy Respiratory Exam: Normal Respiratory: Positive: Chest non-tender, Lungs clear, Normal breath sounds, No respiratory distress, No accessory muscle use Cardiovascular Exam: Normal Cardiovascular: Positive: RRR Abdominal Exam: Normal Abdomen Description: Positive: Nontender Musculoskeletal Exam: Normal - gait steady, moves x 4 ext's Neurological Exam: Normal - grossly nonfocal Psychological Exam: Normal - conversing easily and appropriately. nad. Skin Exam: Normal - nondiaphoretic. no visible or reported rash. Course/Dx - Course Course Of Treatment: RST neg Reviewed coa / tx plan Reviewed meds / alll. Declines work note. - Diagnoses Provider Diagnosis: Sinusitis Discharge - Sign-Out/Discharge Documenting (check all that apply): Patient Departure All imaging exams completed and their final reports reviewed: No Studies - Discharge Plan Condition: Stable Disposition: HOME Patient Education Materials: Sinusitis (ED) Referrals: Paxton Mansfield MD [Primary Care Provider] - Additional Instructions: Seek medical attention for worse or new problems. Drink plenty of fluid. Minimize sun exposure while taking antibiotic. If you are feeling well, then you may stop the antibiotic after 7 days. - Billing Disposition and Condition Condition: STABLE Disposition: Home
== END 2018-11-18 10:05 | disposition home or self-care (01) ==
LOC: UCEAST 08:32
DX: J32.9 Chronic sinusitis, unspecified (principal); Z88.0 Allergy status to penicillin; Z88.1 Allergy status to other antibiotic agents
CPT/HCPCS: 87651; 99212; G0463

== ENCOUNTER 2018-11-29 19:52 | Emergency (ER) | payer BC ==
[2018-11-29 20:19] VITALS: BP 104/81
--- NOTE | 2018-11-29 20:43 | UC ---
Back Pain HPI - HPI Summary HPI Summary: 28-year-old woman who comes in with a chief complaint of bilateral flank pain. Been having some chills for couple of days. Had some flank pain yesterday but today the pains worse. No dysuria. No anterior abdominal pain. No shortness of breath. No fevers measured. Symptoms remind the patient of when she had kidney infections about 10 years ago. No change in bowels. - History of Current Complaint Chief Complaint: UCGU Stated Complaint: LOW BACK PAIN Time Seen by Provider: 11/29/18 20:07 Hx Last Menstrual Period: tubal ligation Pain Intensity: 5 - Allergies/Home Medications Allergies/Adverse Reactions: Allergies Allergy/AdvReac Type Severity Reaction Status Date / Time azithromycin Allergy Severe Rash Verified 11/18/18 08:41 cefuroxime Allergy Severe Anaphylatic Verified 11/18/18 08:41 Shock ketorolac Allergy Severe Vomiting Verified 11/18/18 08:41 Penicillins Allergy Severe Hives Verified 11/18/18 08:41 shellfish derived Allergy Severe ITCHY AND Verified 11/18/18 08:41 ERYTHEMIC EARS Sulfa (Sulfonamide Allergy Severe Hives/Diff. Verified 11/18/18 08:41 Antibiotics) Breathing/I tching sumatriptan Allergy Severe Hives Verified 11/18/18 08:41 methylparaben Allergy Unknown Verified 11/18/18 08:41 Reaction Details mushroom Allergy Hives Verified 11/18/18 08:41 phenylephrine Allergy Unknown Verified 11/18/18 08:41 Reaction Details povidone-iodine Allergy Hives Verified 11/18/18 08:41 [From Betadine] soap [From Betadine] Allergy Hives Verified 11/18/18 08:41 codeine AdvReac Severe See Comment Verified 11/18/18 08:41 montelukast AdvReac Severe Hallucinati Verified 11/18/18 08:41 ons guaifenesin AdvReac Intermediate Palpitation Verified 11/18/18 08:41 s sertraline [From Zoloft] AdvReac See Comment Verified 11/18/18 08:41 grape flavoring Allergy Severe Facial Uncoded 11/18/18 08:41 Swelling, Difficulty Breathing, and Wheezing Purple dye Allergy Severe Facial Uncoded 11/18/18 08:41 swelling, difficulty breathing , wheezing acrilase sture material Allergy Swelling Uncoded 11/29/18 20:21 PROPYLPARABEN Allergy Unknown Uncoded 11/18/18 08:41 Reaction Details Entex AdvReac Tachycardia Uncoded 11/18/18 08:41 Home Medications: Home Medications Norethindrone-Ethinyl Estrad [Dasetta 1-35-28 Tablet] 1 each PO DAILY 11/29/18 [ History Confirmed 11/29/18] PMH/Surg Hx/FS Hx/Imm Hx Previously Healthy: Yes - LUPUS Other History Of: Negative For: HIV, Hepatitis B, Hepatitis C, Anticoagulant Therapy - Surgical History Surgical History: Yes Surgery Procedure, Year, and Place: WISDOM TEETH EXTRACTION. EAR TUBES. 4th Degree laceration with childbirth. TUBAL LIGATION - Family History Known Family History: Positive: Cardiac Disease, Hypertension - Social History Alcohol Use: Rare Substance Use Type: None Smoking Status (MU): Never Smoked Tobacco Have You Smoked in the Last Year: No - Immunization History Most Recent Influenza Vaccination: 03/10/16 Most Recent Tetanus Shot: 2 yrs ago Review of Systems All Other Systems Reviewed And Are Negative: Yes Constitutional: Positive: Chills Skin: Positive: Negative Eyes: Positive: Negative ENT: Positive: Negative Respiratory: Positive: Negative Cardiovascular: Positive: Negative Gastrointestinal: Positive: Nausea, Other - SEE HPI Genitourinary: Negative: Dysuria Motor: Positive: Negative Neurovascular: Positive: Negative Musculoskeletal: Positive: Negative Neurological: Positive: Negative Psychological: Positive: Negative Is Patient Immunocompromised?: No Physical Exam Triage Information Reviewed: Yes Appearance: Well-Appearing, Well-Nourished, Pain Distress - MILD WITH ROM Vital Signs: Initial Vital Signs Temp 98.2 F 11/29/18 20:13 Pulse 104 11/29/18 20:13 Resp 18 11/29/18 20:13 BP 104/81 11/29/18 20:13 Pulse Ox 100 11/29/18 20:13 Vital Signs Reviewed: Yes Eye Exam: Normal Eyes: Positive: Conjunctiva Clear Neck: Positive: Supple Respiratory: Positive: Lungs clear, Normal breath sounds, No respiratory distress Cardiovascular: Positive: RRR Abdomen Description: Positive: Nontender, Soft, CVA Tenderness (R), CVA Tenderness (L) Bowel Sounds: Positive: Present Musculoskeletal Exam: Normal Musculoskeletal: Positive: Strength Intact, ROM Intact Neurological Exam: Normal Neurological: Positive: Alert, Muscle Tone Normal Psychological Exam: Normal Psychological: Positive: Normal Response To Family, Age Appropriate Behavior Skin Exam: Normal Back Pain Course/Dx - Course Course Of Treatment: I discussed the urine results with the patient. No evidence of urinary tract infection based on the urine results. At this time with the flank pain getting worse we discussed further evaluation and recommended evaluation in the emergency department. Patient prefers to go to [facility]. - Differential Dx/Diagnosis Provider Diagnosis: Bilateral flank pain Discharge - Sign-Out/Discharge Documenting (check all that apply): Patient Departure All imaging exams completed and their final reports reviewed: No Studies - Discharge Plan Condition: Stable Disposition: HOME-RECOMMEND TO ED Patient Education Materials: Flank Pain (ED) Referrals: Paxton Mansfield MD [Primary Care Provider] - Additional Instructions: GO DIRECTLY TO THE EMERGENCY DEPARTMENT FOR FURTHER EVALUATION. - Billing Disposition and Condition Condition: STABLE Disposition: Home-Recommend to ED
[2018-11-29] MEDS ORDERED: Phenazopyridine TAB* 100 MG PO ONE (20:55)
== END 2018-11-29 21:05 | disposition home health service (06) ==
LOC: UCCORT 19:52
DX: R10.9 Unspecified abdominal pain (principal); M32.9 Systemic lupus erythematosus, unspecified
CPT/HCPCS: 81003; 84702; 99212; A9270-GY; G0463

== ENCOUNTER 2018-11-29 21:54 | Emergency (ER) | payer BC ==
[2018-11-29 23:52] VITALS: BP 120/65
== END 2018-11-30 00:37 | disposition left against medical advice (07) ==
LOC: ED 21:54
DX: Z53.21 Procedure and treatment not carried out due to patient leaving prior to being seen by health care provider (principal)
CPT/HCPCS: 99282

== ENCOUNTER → 2018-11-30 08:05 | Emergency (ER) | payer BC ==
[~2018-11-30 08:05] MED LIST: Iohexol 350* (CONTRAST) 500 ML MDV IV ONE; diPHENhydraMINE IV* 50 MG/ML 1 ml VIAL (BENADRYL) IV ONE
--- NOTE | 2018-11-30 08:55 | ED ---
Back Pain - HPI Summary HPI Summary: 28-year-old female presents with bilateral flank pain for the past 2 days. She just finished a course of Cipro on Tuesday and pain started on Tuesday. She denies any dysuria urgency or frequency. no hematuria. Has never had this pain before. Denies any chest pain or shortness of breath. She did have nausea. No weakness. No saddle anesthesia. No loss of bowel or bladder. There is no numbness or tingling. No pains in legs. States pain doesn't radiate into the back. She has a history of lupus. - History of Current Complaint Chief Complaint: EDBackInjuryPain Stated Complaint: LOW BACK PAIN PER PT Time Seen by Provider: 11/30/18 08:20 Hx Last Menstrual Period: tubal ligation Pain Intensity: 5 - Allergies/Home Medications Allergies/Adverse Reactions: Allergies Allergy/AdvReac Type Severity Reaction Status Date / Time azithromycin Allergy Severe Rash Verified 11/29/18 21:57 cefuroxime Allergy Severe Anaphylatic Verified 11/29/18 21:57 Shock ketorolac Allergy Severe Vomiting Verified 11/29/18 21:57 Penicillins Allergy Severe Hives Verified 11/29/18 21:57 shellfish derived Allergy Severe ITCHY AND Verified 11/29/18 21:57 ERYTHEMIC EARS Sulfa (Sulfonamide Allergy Severe Hives/Diff. Verified 11/29/18 21:57 Antibiotics) Breathing/I tching sumatriptan Allergy Severe Hives Verified 11/29/18 21:57 methylparaben Allergy Unknown Verified 11/29/18 21:57 Reaction Details mushroom Allergy Hives Verified 11/29/18 21:57 phenylephrine Allergy Unknown Verified 11/29/18 21:57 Reaction Details povidone-iodine Allergy Hives Verified 11/29/18 21:57 [From Betadine] soap [From Betadine] Allergy Hives Verified 11/29/18 21:57 codeine AdvReac Severe See Comment Verified 11/29/18 21:57 montelukast AdvReac Severe Hallucinati Verified 11/29/18 21:57 ons guaifenesin AdvReac Intermediate Palpitation Verified 11/29/18 21:57 s sertraline [From Zoloft] AdvReac See Comment Verified 11/29/18 21:57 grape flavoring Allergy Severe Facial Uncoded 11/29/18 21:57 Swelling, Difficulty Breathing, and Wheezing Purple dye Allergy Severe Facial Uncoded 11/29/18 21:57 swelling, difficulty breathing , wheezing acrilase sture material Allergy Swelling Uncoded 11/29/18 21:57 PROPYLPARABEN Allergy Unknown Uncoded 11/29/18 21:57 Reaction Details Entex AdvReac Tachycardia Uncoded 11/29/18 21:57 PMH/Surg Hx/FS Hx/Imm Hx Endocrine/Hematology History: Denies: Hx Anticoagulant Therapy, Hx Diabetes, Hx Thyroid Disease Cardiovascular History: Reports: Other Cardiovascular Problems/Disorders - LUPUS /Raynaud's Phenomenon Denies: Hx Congestive Heart Failure, Hx Deep Vein Thrombosis, Hx Hypertension , Hx Myocardial Infarction, Hx Pacemaker/ICD Respiratory History: Reports: Other Respiratory Problems/Disorders - History of pneumonia Denies: Hx Asthma, Hx Chronic Obstructive Pulmonary Disease (COPD), Hx Lung Cancer, Hx Pneumonia, Hx Pulmonary Embolism GI History: Denies: Hx Gall Bladder Disease, Hx Gastrointestinal Bleed, Hx Ulcer, Hx Urosepsis, Other GI Disorders History: Reports: Hx Kidney Infection - History of, Kidney and UTI, years ago , Other Problems/Disorders - Frequent urination, abnormal uterine and vaginal bleeding Denies: Hx Kidney Stones, Hx Renal Disease Musculoskeletal History: Reports: Other Musculoskeletal History - LUPUS-causes achey joints Denies: Hx Arthritis Sensory History: Reports: Hx Contacts or Glasses - Glasses and contacts Denies: Hx Hearing Aid Opthamlomology History: Reports: Hx Contacts or Glasses - Glasses and contacts Neurological History: Reports: Hx Headaches, Hx Migraine - She uses Imetrix- oral for migraines. Denies: Hx Dementia, Hx Seizures, Hx Transient Ischemic Attacks (TIA), Other Neuro Impairments/Disorders Psychiatric History: Reports: Hx Anxiety - Would like to take her morning anxiety med day of surgery Denies: Hx Depression, Hx Schizophrenia, Hx Bipolar Disorder, Hx Substance Abuse - Surgical History Surgery Procedure, Year, and Place: WISDOM TEETH EXTRACTION. EAR TUBES. 4th Degree laceration with childbirth. 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 Denies: Hx Clostridium Difficile, Hx Hepatitis, Hx Human Immunodeficiency Virus (HIV), Hx Shingles, Hx Tuberculosis, Traveled Outside the [place] in Last 30 Days - Family History Known Family History: Positive: Cardiac Disease, Hypertension - Social History Alcohol Use: Rare Substance Use Type: Reports: None Smoking Status (MU): Never Smoked Tobacco Have You Smoked in the Last Year: No Review of Systems Negative: Fever Negative: Chest Pain Negative: Shortness Of Breath Positive: flank pain All Other Systems Reviewed And Are Negative: Yes Physical Exam Triage Information Reviewed: Yes Vital Signs On Initial Exam: Initial Vitals Temp Pulse Resp BP Pulse Ox 97.5 F 100 14 127/84 99 11/30/18 08:16 11/30/18 08:16 11/30/18 08:16 11/30/18 08:16 11/30/18 08:16 Vital Signs Reviewed: Yes Appearance: Positive: Well-Appearing Skin: Positive: Warm, Dry Head/Face: Positive: Normal Head/Face Inspection Eyes: Positive: Normal, Conjunctiva Clear ENT: Positive: Pharynx normal Respiratory/Lung Sounds: Positive: Clear to Auscultation, Breath Sounds Present Cardiovascular: Positive: Normal, RRR Abdomen Description: Positive: Nontender, Soft, CVA Tenderness (R), CVA Tenderness (L) Bowel Sounds: Positive: Present Musculoskeletal: Positive: Strength/ROM Intact - back, Other - neg SLR Neurological: Positive: Normal Psychiatric: Positive: Normal Diagnostics - Vital Signs Vital Signs Temp Pulse Resp BP Pulse Ox 11/30/18 08:41 97 F 94 16 117/79 100 11/30/18 08:16 97.5 F 100 14 127/84 99 - Laboratory Result Diagrams: 11/30/18 08:57 11/30/18 08:57 Lab Statement: Any lab studies that have been ordered have been reviewed, and results considered in the medical decision making process. - CT abd CT Interpretation Completed By: Radiologist Summary of CT Findings: ABDOMEN PELVIS IMPRESSION: #. LEFT greater than RIGHT striated nephrograms and pyelograms without obstructive. uropathy. Given absence of obstructive features or evidence for renal vein thrombosis and. suggestion of bilateral kidney involvement the differential primarily includes acute. pyelonephritis, acute tubular necrosis, and acute tubular obstruction. #. No additional abdominal pelvic pathologic process evident. - Ultrasound renal Ultrasound Interpretation Completed By: Radiologist Summary of Ultrasound Findings: IMPRESSION: Unremarkable renal ultrasound. Re-Evaluation - Re-Evaluation First Eval Comment: discussed results Second Eval Re-Evaluation Time: 13:04 Comment: discussed discharge plan Back Pain Course/Dx - Course Course Of Treatment: 28-year-old female presents with bilateral flank pain for the past 2 days. She just finished a course of Cipro. She denies any dysuria urgency or frequency. no hematuria. Has never had this pain before. Denies any chest pain or shortness of breath. She did have nausea. No weakness. No saddle anesthesia. No loss of bowel or bladder. There is no numbness or tingling. No pains in legs. States pain doesn't radiate into the back. On exam tenderness over bilateral flanks. wbc normal. renal function normal. d- dimer elevated. got CTA and has striated nephorrams and pyelograms. discussed case with dr carlton who states that should run by hospitalist. ran case by dr cottrell who states nothing to do now. can follow up as no protein in urine and normal cr and bun. told to follow up with primary or rheumatology for repeat renal function. told to stop ibuprofen which patient states takes daily. gave short course of pain medication. will wait for final culture for urine. patient states can only take doxycyline for uti if needed. patient understand and agrees with plan. - Diagnoses Differential Diagnosis/HQI/PQRI: Positive: Other - pyelonephritis, lupus nephritis, PE Provider Diagnoses: Flank pain Discharge - Sign-Out/Discharge Documenting (check all that apply): Patient Departure Patient Received Moderate/Deep Sedation with Procedure: No - Discharge Plan Condition: Good Disposition: HOME Prescriptions: HYDROcodone/ACETAMIN 5-325 MG* [Toney 5-325 TAB*] 1 tab PO Q6H PRN #16 tab MDD 4 PRN Reason: Pain Patient Education Materials: Flank Pain (ED) Referrals: Paxton Mansfield MD [Primary Care Provider] - Laura Mcclelland MD [Medical Doctor] - Additional Instructions: follow up with primary or rheumatology A referral was given to nephrology if needed take tyenlol as needed every 6 hours, use norco every 6 hours as needed for pain , stop using ibuprofen Return to ED if develop any new or worsening symptoms - Billing Disposition and Condition Condition: GOOD Disposition: Home
[2018-11-30 09:17] LABS: Hematocrit 41 % (35-47); Mean Corpuscular HGB Conc 34 g/dL (31-36); Mean Corpuscular Hemoglobin 30 pg (27-31); Mean Corpuscular Volume 89 fL (80-97); Red Blood Count 4.66 10^6 /uL (3.70-4.87); Red Cell Distribution Width 13 % (10-15); White Blood Count 5.7 10^3/uL (3.5-10.8)
[2018-11-30 09:33] LABS: ABS Eosinophils 0.2 10^3/ul (0-0.6); ABS Lymphocytes 1.8 10^3/ul (1.0-4.8); ABS Monocytes 0.4 10^3/ul (0-0.8); ABS Neutrophils 3.2 10^3/ul (1.5-7.7); Eosinophil % 3.8 %; Lymphocyte % 31.6 %; Platelet Count Platelets clumped. 10^3/uL (150-450)
[2018-11-30 09:43] LABS: Urine Appearance Clear; Urine Bacteria Absent (Absent); Urine Bilirubin Negative (Negative); Urine Blood Negative (Negative); Urine Color Amber; Urine Glucose Negative (Negative); Urine Ketones Negative (Negative); Urine Nitrite Positive (Negative); Urine Protein Negative (Negative); Urine Red Blood Cell Trace(0-2/hpf) (Absent); Urine Specific Gravity 1.008 (1.010-1.030); Urine Squamous Epithelial Cell Present (Absent); Urine Urobilinogen Negative (Negative); Urine White Blood Cell Trace(0-5/hpf) (Absent)
[2018-11-30 09:45] LABS: HCG Pregnancy < 0.60 mIU/mL
[2018-11-30 09:48] LABS: Albumin 4.1 g/dL (3.2-5.2); CO2 Carbon Dioxide 23 mmol/L (22-32); Calcium 9.6 mg/dL (8.6-10.3); Chloride 106 mmol/L (101-111); Sodium 138 mmol/L (135-145)
[2018-11-30 09:55] LABS: ALT 15 U/L (7-52); Albumin/Globulin Ratio 1.4 (1-3); Alkaline Phosphatase 54 U/L (34-104); Blood Urea Nitrogen 15 mg/dL (6-24); C Reactive Protein 15.52 mg/L (<8.01); EGFR African American 109.8 (>60); EGFR Non-African American 90.7 (>60); Glucose 57 mg/dL (70-100); Total Protein 7.1 g/dL (6.4-8.9)
[2018-11-30 09:58] LABS: Anion Gap 9 mmol/L (2-11)
[2018-11-30 13:49] VITALS: BP 124/74
== END | disposition home or self-care (01) ==
LOC: ED 08:05
DX: R10.31 Right lower quadrant pain (principal); R10.32 Left lower quadrant pain; Z88.1 Allergy status to other antibiotic agents; Z88.5 Allergy status to narcotic agent; Z88.0 Allergy status to penicillin; Z88.2 Allergy status to sulfonamides; Z88.8 Allergy status to other drugs, medicaments and biological substances
CPT/HCPCS: 36415; 71275; 74177; 76775; 80053; 81003; 81015; 83690; 84702; 85025; 85379; 86140; 87086; 96374; 99283; J1200; Q9967

== ENCOUNTER 2019-08-21 17:27 | Emergency (ER) | payer BC ==
[2019-08-21 17:49] VITALS: BP 119/74
--- NOTE | 2019-08-21 18:39 | UC ---
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 Right side of her face has pressure and her right ear hurts. " -she has h/o sinus infections. doxy is normally efefctive. -pain started rt cheek and teeth yesetrday. significant pain. -while waiting in exam room, she got a call from her PCP stating that they called in doxy. -she would liek her ear checked too - History of Current Complaint Chief Complaint: UCGeneralIllness Stated Complaint: SINUE/RT EAR PAIN Time Seen by Provider: 08/21/19 18:20 Hx Last Menstrual Period: tubal/ablation Pain Intensity: 4 - Allergies/Home Medications Allergies/Adverse Reactions: Allergies Allergy/AdvReac Type Severity Reaction Status Date / Time azithromycin Allergy Severe Rash Verified 08/21/19 17:50 cefuroxime Allergy Severe Anaphylatic Verified 08/21/19 17:50 Shock ketorolac Allergy Severe Vomiting Verified 08/21/19 17:50 Penicillins Allergy Severe Hives Verified 08/21/19 17:50 shellfish derived Allergy Severe ITCHY AND Verified 08/21/19 17:50 ERYTHEMIC EARS Sulfa (Sulfonamide Allergy Severe Hives/Diff. Verified 08/21/19 17:50 Antibiotics) Breathing/I tching sumatriptan Allergy Severe Hives Verified 08/21/19 17:50 ciprofloxacin [From Cipro] Allergy See Comment Verified 08/21/19 17:51 methylparaben Allergy Unknown Verified 08/21/19 17:50 Reaction Details mushroom Allergy Hives Verified 08/21/19 17:50 phenylephrine Allergy Unknown Verified 08/21/19 17:50 Reaction Details povidone-iodine Allergy Hives Verified 08/21/19 17:50 [From Betadine] soap [From Betadine] Allergy Hives Verified 08/21/19 17:50 codeine AdvReac Severe See Comment Verified 08/21/19 17:50 montelukast AdvReac Severe Hallucinati Verified 08/21/19 17:50 ons guaifenesin AdvReac Intermediate Palpitation Verified 08/21/19 17:50 s sertraline [From Zoloft] AdvReac See Comment Verified 08/21/19 17:50 grape flavoring Allergy Severe Facial Uncoded 08/21/19 17:50 Swelling, Difficulty Breathing, and Wheezing Purple dye Allergy Severe Facial Uncoded 08/21/19 17:50 swelling, difficulty breathing , wheezing acrilase sture material Allergy Swelling Uncoded 08/21/19 17:50 PROPYLPARABEN Allergy Unknown Uncoded 08/21/19 17:50 Reaction Details Entex AdvReac Tachycardia Uncoded 08/21/19 17:50 Home Medications: Home Medications Hydroxychloroquine TAB* [Plaquenil TAB*] 200 mg PO QAM 10/23/14 [History Confirmed 08/21/19] clonazePAM TAB(*) [Klonopin TAB(*)] 0.5 mg PO BID 10/23/14 [History Confirmed ] EPINEPHrine [Epipen] 0.3 mg IJ SEE INSTRUCTIONS PRN 04/03/18 [History Confirmed 08/21/19] Lysine 500 mg PO QAM 04/03/18 [History Confirmed 08/21/19] Valacyclovir HCl [Valtrex] 1,000 mg PO DAILY PRN 05/14/18 [History Confirmed ] Cholecalciferol (Vitamin D3) [Vitamin D3] 1,000 unit PO DAILY 11/18/18 [History Confirmed 08/21/19] Cyanocobalamin (Vitamin B-12) [Vitamin B-12] 1,000 mcg PO DAILY 11/18/18 [ History Confirmed 08/21/19] Norethindrone-Ethinyl Estrad [Dasetta 1-35-28 Tablet] 1 each PO DAILY 11/29/18 [ History Confirmed 08/21/19] Biotin 1,000 mcg PO DAILY 08/21/19 [History Confirmed 08/21/19] PMH/Surg Hx/FS Hx/Imm Hx Previously Healthy: Yes - lupus, on plaquenil. normally doesnt stop the plaquenil when ill. Endocrine History: Other - recommend she call her rheum Dr to ask if she should shold plaquenil Other History Of: Negative For: HIV, Hepatitis B, Hepatitis C, Anticoagulant Therapy - Surgical History Surgical History: Yes Surgery Procedure, Year, and Place: WISDOM TEETH EXTRACTION. EAR TUBES. 4th Degree laceration with childbirth. TUBAL LIGATION - Family History Known Family History: Positive: Cardiac Disease, Hypertension - Social History Alcohol Use: Rare Substance Use Type: None Smoking Status (MU): Never Smoked Tobacco Have You Smoked in the Last Year: No - Immunization History Most Recent Influenza Vaccination: 03/10/16 Most Recent Tetanus Shot: 2 yrs ago Review of Systems All Other Systems Reviewed And Are Negative: Yes Constitutional: Positive: Negative. Negative: Fever, Chills, Fatigue Skin: Positive: Negative Eyes: Positive: Negative ENT: Positive: Ear Ache, Sinus Pain/Tenderness Respiratory: Positive: Negative. Negative: Shortness Of Breath, Cough Cardiovascular: Positive: Negative. Negative: Palpitations, Chest Pain Gastrointestinal: Positive: Negative Genitourinary: Positive: Negative Motor: Positive: Negative Neurovascular: Positive: Negative Musculoskeletal: Positive: Negative Neurological/Mental Status: Positive: Negative Psychological: Positive: Negative Is Patient Immunocompromised?: Yes - plaquienil Physical Exam Triage Information Reviewed: Yes Appearance: Well-Appearing, No Pain Distress, Well-Nourished - very pleasant. reliable. Vital Signs: Initial Vital Signs Temp 98 F 08/21/19 17:45 Pulse 95 08/21/19 17:45 Resp 14 08/21/19 17:45 BP 119/74 08/21/19 17:45 Pulse Ox 100 08/21/19 17:45 Vital Signs Reviewed: Yes Eye Exam: Normal ENT Exam: Normal ENT: Positive: Pharynx normal, TMs normal, Sinus tenderness - rt maxillary, Uvula midline. Negative: Nasal congestion, Nasal drainage, TM bulging, TM dull , TM red, Tonsillar swelling Neck exam: Normal Neck: Positive: Supple, Nontender, No Lymphadenopathy Respiratory Exam: Normal Respiratory: Positive: Lungs clear, Normal breath sounds, No respiratory distress, No accessory muscle use. Negative: Crackles, Rhonchi, Stridor, Wheezing Cardiovascular Exam: Normal Cardiovascular: Positive: RRR Abdominal Exam: Normal Abdomen Description: Positive: Soft Musculoskeletal Exam: Normal Neurological Exam: Normal Psychological Exam: Normal Skin Exam: Normal Skin: Negative: Rashes Throat Pain/Nasal Course/Dx - Course Course Of Treatment: camiuiscottys - aready treated by PCP calling in a bx while she was waiting. wanted ear checked. ear is nml. I agree w/ abx. she is pleased - Differential Dx/Diagnosis Differential Diagnosis/HQI/PQRI: Otitis Media, Sinusitis, Tonsillitis, URI Provider Diagnosis: Sinusitis Discharge ED - Sign-Out/Discharge Documenting (check all that apply): Patient Departure All imaging exams completed and their final reports reviewed: No Studies - Discharge Plan Condition: Stable Disposition: AGAINST MEDICAL ADVICE Patient Education Materials: Sinusitis (ED) Referrals: Paxton Mansfield MD [Primary Care Provider] - Additional Instructions: Your doctor has already called in doxy while you were waiting to be seen. I agree w/ diagnosis of sinusitis. -It is recommended that you take a probiotic daily while you are on antibiotics. A few common brands that you can buy over the counter are colon health, align and florastor. These can help prevent a colon infection called c diff that can be associated with antibiotic use. -reassuringly your ear is normal. -Follow up with your PCP for further guidance. - Billing Disposition and Condition Condition: STABLE Disposition: Against Medical Advice
== END 2019-08-21 18:48 | disposition home or self-care (01) ==
LOC: UCCORT 17:27
DX: J32.9 Chronic sinusitis, unspecified (principal); H92.01 Otalgia, right ear; M32.9 Systemic lupus erythematosus, unspecified; Z88.1 Allergy status to other antibiotic agents; Z88.6 Allergy status to analgesic agent; Z91.013 Allergy to seafood; Z88.2 Allergy status to sulfonamides; Z88.8 Allergy status to other drugs, medicaments and biological substances; Z91.018 Allergy to other foods; Z88.5 Allergy status to narcotic agent; Z91.09 Other allergy status, other than to drugs and biological substances
CPT/HCPCS: 99211; G0463